=== PATIENT | female | born 1965 | race African-American/Black ===

== ENCOUNTER → 2016-09-12 | Emergency (ER) | payer OTHER ==
[~2016-09-12] MED LIST: METOCLOPRAMIDE HCL INJECTION 10 MG/2 ML VIAL IVPB ONE; PANTOPRAZOLE SODIUM 40 MG in SODIUM CHLORIDE 100 ML IVPB ONE; SODIUM CHLORIDE 1,000 ML IV STA
[2016-09-12 22:13] VITALS: BP 141/92; PULSE 83; TEMP 98.3; BMI 24.4
--- NOTE | 2016-09-12 23:34 | PDOC ---
History of Present Illness - General Chief Complaint: Nausea/Vomiting Stated Complaint: ABDOMINAL PAIN, VOMITING Time Seen by Provider: 09/12/16 22:41 History Source: Patient Exam Limitations: No Limitations - History of Present Illness Travel History: No Initial Comments: 09/12/16 23:29 51yo Female patient with no significant past medical history presents to ED c/o generalized abdominal pain and nausea. Patient states symptoms began yesterday with vomiting. She denies fever, CP, back pain, diarrhea or any other complaints at this time. Timing/Duration: reports: constant Quality: reports: mild Abdominal Pain Onset Location: reports: generalized abdomen Pain Radiation: denies: no radiation, RUQ, LUQ, RLQ, LLQ, epigastric, periumbilical, flank, groin, scapula, shoulder, chest, back, other Activities at Onset: reports: no specific activity Treatment Prior to Arrive: worse with: analgesics, antacids, cold pack, heat, laxative, enema, other Aggravating Factors: improves with: Eating Alleviating Factors: improves with: Belching Past History - Travel Traveled outside of the country in the last 30 days: No Close contact w/someone who was outside of country & ill: No - Past Medical History Allergies/Adverse Reactions: Allergies Allergy/AdvReac Type Severity Reaction Status Date / Time No Known Allergies Allergy Verified 09/12/16 22:11 Home Medications: Ambulatory Orders Aspirin [ASA -] 81 mg PO DAILY 07/03/15 Buprenorphine/Naloxone [Suboxone 8Mg/2Mg Sl Film -] 1 each SL DAILY 07/03/15 Clonazepam [Klonopin] 0.5 mg PO DAILY 07/03/15 Digoxin [Lanoxin -] 0.25 mg PO DAILY 07/03/15 Furosemide [Lasix -] 40 mg PO BID 07/03/15 Thyroid Disease: No - Immunization History Immunization Up to Date: No - Psycho/Social/Smoking Cessation Hx Anxiety: No Suicidal Ideation: No Smoking History: Current every day smoker Have you smoked in the past 12 months: Yes Number of Cigarettes Smoked Daily: 5 Information on smoking cessation initiated: No Hx Alcohol Use: No Drug/Substance Use Hx: No Substance Use Type: None Hx Substance Use Treatment: No Abd/GI Specific PMHX - Complaint Specific PMHX Colitis: No Diverticulitis: No Gall Bladder Disease: No GERD: No Hepatitis: No Irritable Bowel Synd (IBS): No Pancreatitis: No GI Ulcer Disease: No Review of Systems - Review of Systems Able to Perform ROS?: Yes Is the patient limited Estonian proficient: No Constitutional: No: Chills, Fever Cardiac (ROS): No: Chest Pain ABD/GI: Yes: Nausea, Vomiting, Abdominal cramping. No: Constipated, Diarrhea : No: Burning, Dysuria, Flank Pain, Hematuria Musculoskeletal: No: Back Pain Integumentary: No: Bruising, Dryness, Erythema, Rash Neurological: No: Headache, Numbness, Weakness, Dizziness *Physical Exam - Vital Signs Last Vital Signs Temp Pulse Resp BP Pulse Ox 98.3 F 83 20 141/92 96 09/12/16 22:11 09/12/16 22:11 09/12/16 22:11 09/12/16 22:11 09/12/16 22:11 - Physical Exam General Appearance: Yes: Nourished, Appropriately Dressed. No: Apparent Distress, Mild Distress, Moderate Distress, Severe Distress HEENT: positive: EOMI, JAHAIRA, Normal ENT Inspection, Normal Voice, Symmetrical, TMs Normal, Pharynx Normal. negative: Pharyngeal Erythema, Tonsillar Exudate, Tonsillar Erythema, Nasal Congestion, Rhinorrhea, Sinus Tenderness, TM Bulging, TM Dull, TM Erythema Neck: positive: Trachea midline, Supple. negative: Stridor, Lymphadenopathy (R) , Lymphadenopathy (L) Respiratory/Chest: positive: Lungs Clear, Normal Breath Sounds. negative: Chest Tender, Respiratory Distress, Accessory Muscle Use, Labored Respiration, Rapid RR, Rhonchi, Stridor, Wheezing Cardiovascular: positive: Regular Rhythm, Regular Rate Gastrointestinal/Abdominal: positive: Soft, Increased Bowel Sounds. negative: Tender, Distended, Guarding, Rebound, Tenderness Musculoskeletal: positive: Normal Inspection. negative: CVA Tenderness Extremity: positive: Normal Capillary Refill, Normal Inspection, Normal Range of Motion. negative: Pedal Edema, Swelling, Calf Tenderness, Erythema, Inflammation Integumentary: positive: Normal Color, Dry, Warm Neurologic: positive: home organizer II-XII NML intact, Fully Oriented, Alert, Normal Mood/ Affect, Normal Response, Motor Strength 5/5 *DC/Admit/Observation/Transfer Diagnosis at time of Disposition: Gastroenteritis - Discharge Dispostion Disposition: ELOPED Condition at time of disposition: Stable Admit: No
== END | disposition left against medical advice (07) ==
LOC: JER 21:59
DX: K52.9 Noninfective gastroenteritis and colitis, unspecified (principal)
CPT/HCPCS: 99281-25

== ENCOUNTER 2017-01-19 12:49 | Inpatient (IN) | payer OTHER ==
[2017-01-19 13:04] VITALS: BMI 26.5
--- NOTE | 2017-01-19 15:30 | HP ---
COWS - Scale Resting Pulse: 1= SD 81-100 Sweatin= Chills/Flushing Restless Observation: 3= Extraneous Movement Pupil Size: 0= Normal to Room Light Bone or Joint Aches: 4=Acute Joint/Muscle Pain Runny Nose/ Eye Tearin= Runny Nose/Eyes GI Upset > 30mins: 2= Nausea/Diarrhea Tremor Observation: 1= Tremor [place], Not Seen Yawning Observation: 1= 1-2x During Session Anxiety or Irritability: 2=Irritable/Anxious Goose Flesh Skin: 0=Smooth Skin COWS Score: 17 CIWA Score - CIWA Score Nausea/Vomitin-Int. Nausea w/Dry Heave Muscle Tremors: 3 Anxiety: 5 Agitation: 4-Moderately Restless Paroxysmal Sweats: 1-Minimal Palms Moist Orientation: 0-Oriented Tacttile Disturbances: 3-Moderate Itch/Numb/Burn Auditory Disturbances: 0-None Visual Disturbances: 0-None Headache: 2-Mild CIWA-Ar Total Score: 22 Admission ROS BHS - HPI Chief Complaint: DETOX TX FOR HEROIN AND ALCOHOL WITHDRAWAL SX Allergies/Adverse Reactions: Allergies Allergy/AdvReac Type Severity Reaction Status Date / Time No Known Allergies Allergy Verified 01/19/17 14:48 History of Present Illness: 51 Y/O AA/FEMALE WITH A HX OF HEROIN,PCP AND ALCOHOL DEPENDENCE SEEKING DETOX TX. Exam Limitations: No Limitations - Ebola screening Have you traveled outside of the country in the last 21 days: No Have you had contact with anyone from an Ebola affected area: No Have you been sick,other than usual withdrawal symptoms: No Do you have a fever: No - Review of Systems Constitutional: Chills, Night Sweats, Changes in sleep EENT: reports: No Symptoms Reported Respiratory: reports: Shortness of Breath, Wheezing (COPD-RX ASTHMA PUMP) Cardiac: reports: No Symptoms Reported GI: reports: Diarrhea, Nausea, Vomiting, Abdominal cramping (WITHRAWAL SX) : reports: No Symptoms Reported Musculoskeletal: reports: Back Pain (WITHDRAWAL SX), Joint Pain, Muscle Pain Integumentary: reports: No Symptoms Reported Neuro: reports: Unsteady Gait Endocrine: reports: No Symptoms Reported Hematology: reports: Anemia (TAKES MVI) Psychiatric: reports: Orientated x3 Other Systems: Reviewed and Negative Patient History - Patient Medical History Hx Anemia: Yes (MVI) Hx Asthma: No Hx Chronic Obstructive Pulmonary Disease (COPD): Yes (MDI) Hx Cardiac Disorders: No Hx Hypertension: No Hx Hypercholesterolemia: No HX Cerebrovascular Accident: No Hx Seizures: No Hx Diabetes: No Hx Gastrointestinal Disorders: No Hx Genitourinary Disorders: No Hx Sexually Transmitted Disorders: No Hx Renal Disease (ESRD): No Hx Thyroid Disease: No Hx Human Immunodeficiency Virus (HIV): No (NEGATIVE HX) Hx Hepatitis C: No Hx Depression: No (ANXIETY AND INSOMNIA-TAKES KLONOPIN) Hx Suicide Attempt: No Hx Bipolar Disorder: No Hx Schizophrenia: No - Patient Surgical History Past Surgical History: No Hx Neurologic Surgery: No Hx Cataract Extraction: No Hx Cardiac Surgery: No Hx Lung Surgery: No Hx Breast Surgery: No Hx Breast Biopsy: No Hx Abdominal Surgery: No Hx Appendectomy: No Hx Cholecystectomy: No Hx Genitourinary Surgery: No Hx Section: No Hx Orthopedic Surgery: No Hx Hysterectomy: No Anesthesia Reaction: No - PPD History Previous Implant?: Yes Documented Results: Negative w/o proof Implanted On Prior [facility] Admission?: No PPD to be Administered?: Yes - Reproductive History Patient is a Female of Child Bearing Age (11 -55 yrs old): Yes LMP comment: 2009 Patient : No - Smoking Cessation Smoking history: Current some day smoker Have you smoked in the past 12 months: Yes Aproximately how many cigarettes per day: 6 Hx Chewing Tobacco Use: No Initiated information on smoking cessation: Yes 'Breaking Loose' booklet given: 01/19/17 - Substance & Tx. History Hx Alcohol Use: Yes (VODKA) Hx Substance Use: Yes (HEROIN/PCP) Substance Use Type: Alcohol, Heroin Hx Substance Use Treatment: Yes (LAST TX AT [facility] 2007) - Substances Abused Heroin Route: Injection Frequency: Daily Amount used: 6-10 bags Age of first use: 23 Date of Last Use: 01/19/17 PCP Route: Smoking Frequency: 1-2 times per week Amount used: $10-20 Age of first use: 23 Date of Last Use: 01/17/17 Alcohol-vodka Route: Oral Frequency: Daily Amount used: 1 pt. Age of first use: 23 Date of Last Use: 01/19/17 Family Disease History - Family Disease History Family History: Denies Admission Physical Exam BHS - Vital Signs Vital Signs: Vital Signs - 24 hr 01/19/17 13:01 Temperature 97.8 F Pulse Rate 96 H Respiratory 18 Rate Blood Pressure 140/90 - Physical General Appearance: Yes: Moderate Distress HEENTM: Yes: EOMI, Normocephalic, JAHAIRA, Pharynx Normal Respiratory: Yes: Chest Non-Tender, Lungs Clear, Normal Breath Sounds, No Respiratory Distress Breast: Yes: Breast Exam Deferred Cardiology: Yes: Regular Rhythm, Regular Rate, S1, S2 Abdominal: Yes: Normal Bowel Sounds, Non Tender, Flat, Soft Genitourinary: Yes: Other (N/C) Musculoskeletal: Yes: full range of Motion, Gait Steady Extremities: Yes: Normal Range of Motion, Non-Tender Neurological: Yes: certified orthotist/pedorthist II-XII NML intact, Fully Oriented, Alert, Motor Strength 5/5 Integumentary: Yes: Dry, Warm, Track Potter (OLD TRACK ROLAND SCARS ON BOTH ELBOWS AND HANDS.) Lymphatic: Yes: Within Normal Limits - Diagnostic (1) Opioid dependence with withdrawal Current Visit: Yes Status: Acute (2) Alcohol dependence with uncomplicated withdrawal Current Visit: Yes Status: Acute (3) History of chronic obstructive pulmonary disease Current Visit: Yes Status: Chronic (4) Anemia Current Visit: No Status: Suspected Qualifiers: Anemia type: unspecified type Qualified Code(s): D64.9 - Anemia, unspecified Cleared for Admission [facility] - Detox or Rehab [facility] Level of Care: Medically Managed Detox Regimen/Protocol: Methadone/Librium [facility] Breath Alcohol Content Breath Alcohol Content: 0.015 Urine Pregancy Test - Result Urine Test Results: Negative- NO Line Present Urine Drug Screen - Results Drug Screen Negative: No Urine Drug Screen Results: OPI-Opiates, PCP-Phencyclidine
[2017-01-19] MEDS ORDERED: MAGNESIUM HYDROX 2400MG/30ML ORAL SUSPENSION 30 ML CUP PO PRN (15:53)
[2017-01-19] MEDS ORDERED: NICOTINE POLACRILEX 2 MG GUM BC PRN (15:53)
[2017-01-19] MEDS ORDERED: MENTHOL/PHENOL 1 EACH UD MM PRN (15:53)
[2017-01-19] MEDS ORDERED: IBUPROFEN 400 MG TABLET (FP) PO PRN (15:53)
[2017-01-19] MEDS ORDERED: LOPERAMIDE HCL 2 MG CAPSULE PO PRN (15:53)
[2017-01-19] MEDS ORDERED: guaiFENesin/D-METHORPHAN HB 10 ML UNIT-DOSE CUPS PO PRN (15:53)
[2017-01-19] MEDS ORDERED: MAGNESIUM CITRATE 300 ML BOTTLE PO PRN (15:53)
[2017-01-19] MEDS ORDERED: P-EPHED 60MG/TRIPROLIDI 2.5MG TABLET PO PRN (15:53)
[2017-01-19] MEDS ORDERED: MAG HYDROX/AL HYDROX/SIMETH 30 ML UNIT-DOSE CUP PO PRN (15:53)
[2017-01-19] MEDS ORDERED: ALBUTEROL SO4 18 GM HFA INHALER IH PRN (15:55)
[2017-01-19] MEDS ORDERED: METHADONE HCL 10 MG TABLET (FOR DETOX USE ONLY) PO ONE ×2 (17:00→23:00)
[2017-01-19] MEDS: ASPIRIN 81 MG CHEWABLE TABLETS PO SCH (18:19)
[2017-01-19] MEDS: chlordiazePOXIDE HCL 25 MG CAPSULE PO SCH ×2 (18:20→22:47)
[2017-01-19] MEDS: NICOTINE 14 MG/24 HOURS TOPICAL PATCH TD SCH (18:25)
[2017-01-19] MEDS: THIAMINE HCL 100 MG TABLET (FP) PO SCH (22:47)
[2017-01-20] MEDS: chlordiazePOXIDE HCL 25 MG CAPSULE PO PRN (01:54)
[2017-01-20 02:26] LABS: URINE APPEARANCE CLEAR; URINE BILIRUBIN NEGATIVE (NEGATIVE); URINE BLOOD NEGATIVE (NEGATIVE); URINE COLOR LT. YELLOW; URINE GLUCOSE (UA) NEGATIVE (NEGATIVE); URINE KETONE NEGATIVE (NEGATIVE); URINE NITRITE NEGATIVE (NEGATIVE); URINE PROTEIN NEGATIVE (NEGATIVE); URINE UROBILINOGEN 0.2 mg/dL (0.2-1.0)
[2017-01-20] MEDS: chlordiazePOXIDE HCL 25 MG CAPSULE PO SCH ×4 (07:54→22:36)
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
[2017-01-20] MEDS ORDERED: METHADONE HCL 10 MG TABLET (FOR DETOX USE ONLY) PO SCH (10:00)
[2017-01-20 10:15] LABS: MCH 26.4 pg (25.7-33.7); MCHC 32.7 g/dl (32.0-36.0); MEAN CELL VOLUME 80.8 fl (80-96); MEAN PLT VOLUME 9.1 fl (7.5-11.1); PLATELET COUNT 150 K/MM3 (134-434); RDW 14.1 % (11.6-15.6); WHITE BLOOD COUNT 3.6 K/mm3 (4.0-10.0)
[2017-01-20 10:26] LABS: ANION GAP 4 (8-16); CALCIUM 8.3 mg/dL (8.5-10.1); CO2 30 mmol/L (21-32)
[2017-01-20] MEDS: PRENATAL VITAMINS W/ FOLIC ACID TABLET (FP) PO SCH (10:29)
[2017-01-20] MEDS: ASPIRIN 81 MG CHEWABLE TABLETS PO SCH (10:29)
[2017-01-20] MEDS: NICOTINE 14 MG/24 HOURS TOPICAL PATCH TD SCH (10:30)
[2017-01-20 10:31] LABS: ALBUMIN 3.3 g/dl (3.4-5.0); ALK PHOS 105 U/L (45-117); BILIRUBIN,TOTAL 0.5 mg/dL (0.2-1.0); CREATININE 0.7 mg/dL (0.55-1.02); GLUCOSE,RANDOM 85 mg/dL (74-106); SGOT/AST 47 U/L (15-37); SGPT/ALT 39 U/L (12-78); TOT PROT 6.9 g/dl (6.4-8.2)
[2017-01-20] MEDS: ACETAMINOPHEN 325 MG TABLET (FP) PO PRN (10:31)
--- NOTE | 2017-01-20 11:26 | PN ---
[facility] CIWA - CIWA Score Nausea/Vomitin-No Nausea/No Vomiting Muscle Tremors: 4-Moderate,w/Arms Extend Anxiety: 3 Agitation: 3 Paroxysmal Sweats: 3 Orientation: 0-Oriented Tacttile Disturbances: 0-None Auditory Disturbances: 0-None Visual Disturbances: 0-None Headache: 1-Very Mild CIWA-Ar Total Score: 14 BHS COWS - Scale Resting Pulse: 0= [place] 80 or Below Sweatin=Flushed/Facial Moisture Restless Observation: 1= Difficult to Sit Still Pupil Size: 0= Normal to Room Light Bone or Joint Aches: 2= Severe Diffuse Aches Runny Nose/ Eye Tearin= Runny Nose/Eyes GI Upset > 30mins: 0= None Tremor Observation of Outstretched Hands: 2= Slight Tremor Visible Yawning Observation: 2= >3x During Session Anxiety or Irritability: 2=Irritable/Anxious Goose Flesh Skin: 3=Piloerection COWS Score: 16 S Progress Note (SOAP) Subjective: shakes sweats interrupted sleep agitation irritable Objective: 01/20/17 11:26 Vital Signs Temperature 98.4 F 01/20/17 09:44 Pulse Rate 71 01/20/17 09:44 Respiratory Rate 18 01/20/17 09:44 Blood Pressure 142/92 01/20/17 09:44 O2 Sat by Pulse Oximetry (%) Laboratory Tests 01/19/17 01/20/17 01/20/17 22:50 07:40 07:40 WBC 3.6 L D RBC 4.46 D Hgb 11.8 D Hct 36.1 D MCV 80.8 MCH 26.4 MCHC 32.7 RDW 14.1 D Plt Count 150 D MPV 9.1 Sodium 141 Potassium 3.9 Chloride 107 D Carbon Dioxide 30 Anion Gap 4 L BUN 6 L D Creatinine 0.7 D Creat Clearance w eGFR > 60 Random Glucose 85 D Calcium 8.3 L Total Bilirubin 0.5 D AST 47 H D ALT 39 D Alkaline Phosphatase 105 Total Protein 6.9 Albumin 3.3 L D Urine Color Lt. yellow Urine Appearance Clear Urine pH 6.0 Ur Specific [place] 1.020 Urine Protein Negative Urine Glucose (UA) Negative Urine Ketones Negative Urine Blood Negative Urine Nitrite Negative Urine Bilirubin Negative Urine Urobilinogen 0.2 RPR Titer 01/20/17 07:40 WBC RBC Hgb Hct MCV MCH MCHC RDW Plt Count MPV Sodium Potassium Chloride Carbon Dioxide Anion Gap BUN Creatinine Creat Clearance w eGFR Random Glucose Calcium Total Bilirubin AST ALT Alkaline Phosphatase Total Protein Albumin Urine Color Urine Appearance Urine pH Ur Specific [place] Urine Protein Urine Glucose (UA) Urine Ketones Urine Blood Urine Nitrite Urine Bilirubin Urine Urobilinogen RPR Titer Nonreactive aaox3 ambulating no acute distress Assessment: 01/20/17 11:26 withdrawal sx Plan: continue detox increase fluids
[2017-01-20 11:43] LABS: URINE LEUK ESTERASE Negative (NEGATIVE)
[2017-01-20 12:45] LABS: SICKLE CELL SCREEN NEGATIVE (NEGATIVE)
--- NOTE | 2017-01-20 22:30 | EKG ---
Test Reason : Blood Pressure : / mmHG Vent. Rate : 070 BPM Atrial Rate : 070 BPM P-R Int : 172 ms QRS Dur : 080 ms QT Int : 392 ms P-R-T Axes : 064 071 050 degrees QTc Int : 423 ms NORMAL SINUS RHYTHM POSSIBLE LEFT ATRIAL ENLARGEMENT BORDERLINE ECG WHEN COMPARED WITH ECG OF 03-JUL-2015 16:08, PREMATURE VENTRICULAR COMPLEXES ARE NO LONGER PRESENT Confirmed by MIRIAM DE LA ROSA, EMERSON ([id number]) on 01/20/2017 10:29:27 PM Referred By: DANIEL YANES Confirmed By:EMERSON PINEDA MD
[2017-01-20] MEDS: ZOLPIDEM TARTRATE 5 MG TABLET PO PRN (22:34)
[2017-01-20] MEDS: THIAMINE HCL 100 MG TABLET (FP) PO SCH (22:36)
[2017-01-21] MEDS: chlordiazePOXIDE HCL 25 MG CAPSULE PO PRN ×3 (02:06→14:18)
[2017-01-21] MEDS: chlordiazePOXIDE HCL 25 MG CAPSULE PO SCH ×2 (05:41→10:24)
[2017-01-21] MEDS: CYCLOBENZAPRINE HCL 10 MG TABLET (FP) PO PRN ×2 (08:55→17:22)
[2017-01-21] MEDS ORDERED: cloNIDine HCL 0.1 MG TABLET PO ONE (09:00)
--- NOTE | 2017-01-21 09:58 | PN ---
S CIWA - CIWA Score Nausea/Vomitin Muscle Tremors: 3 Anxiety: 3 Agitation: 3 Paroxysmal Sweats: 2 Orientation: 0-Oriented Tacttile Disturbances: 1-Very Mild Itch/Numbness Auditory Disturbances: 1-Very Mild Visual Disturbances: 0-None Headache: 2-Mild CIWA-Ar Total Score: 18 BHS COWS - Scale Resting Pulse: 0= [place] 80 or Below Sweatin= Chills/Flushing Restless Observation: 3= Extraneous Movement Pupil Size: 1= Pupils >than Normal Bone or Joint Aches: 2= Severe Diffuse Aches Runny Nose/ Eye Tearin= Runny Nose/Eyes GI Upset > 30mins: 2= Nausea/Diarrhea Tremor Observation of Outstretched Hands: 2= Slight Tremor Visible Yawning Observation: 1= 1-2x During Session Anxiety or Irritability: 2=Irritable/Anxious Goose Flesh Skin: 0=Smooth Skin COWS Score: 16 S Progress Note (SOAP) Subjective: alert,irritable,anxious,interrupted sleep,tremor,pain in the body ad back Objective: 01/21/17 09:57 Vital Signs Temperature 97.7 F 01/21/17 06:10 Pulse Rate 62 01/21/17 06:10 Respiratory Rate 16 01/21/17 06:10 Blood Pressure 145/86 01/21/17 06:10 O2 Sat by Pulse Oximetry (%) Laboratory Last Values WBC 3.6 K/mm3 (4.0-10.0) L D 01/20/17 07:40 RBC 4.46 M/mm3 (3.60-5.2) D 01/20/17 07:40 Hgb 11.8 GM/dL (10.7-15.3) D 01/20/17 07:40 Hct 36.1 % (32.4-45.2) D 01/20/17 07:40 MCV 80.8 fl (80-96) 01/20/17 07:40 MCH 26.4 pg (25.7-33.7) 01/20/17 07:40 MCHC 32.7 g/dl (32.0-36.0) 01/20/17 07:40 RDW 14.1 % (11.6-15.6) D 01/20/17 07:40 Plt Count 150 K/MM3 (134-434) D 01/20/17 07:40 MPV 9.1 fl (7.5-11.1) 01/20/17 07:40 Sickle Cell Screen Negative (NEGATIVE) 01/20/17 07:40 Sodium 141 mmol/L (136-145) 01/20/17 07:40 Potassium 3.9 mmol/L (3.5-5.1) 01/20/17 07:40 Chloride 107 mmol/L (98-107) D 01/20/17 07:40 Carbon Dioxide 30 mmol/L (21-32) 01/20/17 07:40 Anion Gap 4 (8-16) L 01/20/17 07:40 BUN 6 mg/dL (7-18) L D 01/20/17 07:40 Creatinine 0.7 mg/dL (0.55-1.02) D 01/20/17 07:40 Creat Clearance w eGFR > 60 (>60) 01/20/17 07:40 Random Glucose 85 mg/dL (74-106) D 01/20/17 07:40 Calcium 8.3 mg/dL (8.5-10.1) L 01/20/17 07:40 Total Bilirubin 0.5 mg/dL (0.2-1.0) D 01/20/17 07:40 AST 47 U/L (15-37) H D 01/20/17 07:40 ALT 39 U/L (12-78) D 01/20/17 07:40 Alkaline Phosphatase 105 U/L (45-117) 01/20/17 07:40 Total Protein 6.9 g/dl (6.4-8.2) 01/20/17 07:40 Albumin 3.3 g/dl (3.4-5.0) L D 01/20/17 07:40 Urine Color Lt. yellow 01/19/17 22:50 Urine Appearance Clear 01/19/17 22:50 Urine pH 6.0 (5.0-8.0) 01/19/17 22:50 Ur Specific [place] 1.020 (1.001-1.035) 01/19/17 22:50 Urine Protein Negative (NEGATIVE) 01/19/17 22:50 Urine Glucose (UA) Negative (NEGATIVE) 01/19/17 22:50 Urine Ketones Negative (NEGATIVE) 01/19/17 22:50 Urine Blood Negative (NEGATIVE) 01/19/17 22:50 Urine Nitrite Negative (NEGATIVE) 01/19/17 22:50 Urine Bilirubin Negative (NEGATIVE) 01/19/17 22:50 Urine Urobilinogen 0.2 mg/dL (0.2-1.0) 01/19/17 22:50 Ur Leukocyte Esterase Negative (NEGATIVE) 01/19/17 22:50 RPR Titer Nonreactive (NONREACTIVE) 01/20/17 07:40 Assessment: 01/21/17 09:57 withdrawal symptom Plan: continue detox
[2017-01-21] MEDS: hydrOXYzine PAMOATE 50 MG CAPSULE (FP) PO PRN ×2 (10:24→14:30)
[2017-01-21] MEDS: NICOTINE 14 MG/24 HOURS TOPICAL PATCH TD SCH (10:24)
[2017-01-21] MEDS: ASPIRIN 81 MG CHEWABLE TABLETS PO SCH (10:24)
[2017-01-21] MEDS: PRENATAL VITAMINS W/ FOLIC ACID TABLET (FP) PO SCH (10:24)
[2017-01-21] MEDS: METHADONE HCL 5 MG TABLET (FOR DETOX USE ONLY) PO SCH (10:24)
[2017-01-21] MEDS: ACETAMINOPHEN 325 MG TABLET (FP) PO PRN (10:25)
[2017-01-21] MEDS: HYDROCORTISONE 1% TOPICAL CREAM 30 GM TUBE TP SCH ×2 (15:59→22:06)
[2017-01-21] MEDS: chlordiazePOXIDE 5 MG CAPSULE PO SCH ×2 (17:19→22:06)
[2017-01-21] MEDS: ZOLPIDEM TARTRATE 5 MG TABLET PO PRN (22:06)
[2017-01-21] MEDS: THIAMINE HCL 100 MG TABLET (FP) PO SCH (22:06)
[2017-01-21] MEDS: cloNIDine HCL 0.1 MG TABLET PO SCH (22:07)
[2017-01-22] MEDS: hydrOXYzine PAMOATE 50 MG CAPSULE (FP) PO PRN ×2 (02:19→07:37)
[2017-01-22] MEDS: chlordiazePOXIDE HCL 25 MG CAPSULE PO PRN (02:19)
[2017-01-22] MEDS: chlordiazePOXIDE 5 MG CAPSULE PO SCH ×2 (05:49→10:28)
[2017-01-22] MEDS: CYCLOBENZAPRINE HCL 10 MG TABLET (FP) PO PRN (05:49)
[2017-01-22] MEDS: ASPIRIN 81 MG CHEWABLE TABLETS PO SCH (10:28)
[2017-01-22] MEDS: cloNIDine HCL 0.1 MG TABLET PO SCH (10:28)
[2017-01-22] MEDS: METHADONE HCL 5 MG TABLET (FOR DETOX USE ONLY) PO SCH (10:28)
[2017-01-22] MEDS: PRENATAL VITAMINS W/ FOLIC ACID TABLET (FP) PO SCH (10:29)
[2017-01-22] MEDS: HYDROCORTISONE 1% TOPICAL CREAM 30 GM TUBE TP SCH (10:29)
[2017-01-22] MEDS: NICOTINE 14 MG/24 HOURS TOPICAL PATCH TD SCH (10:29)
[2017-01-22 11:20] VITALS: BP 127/75; PULSE 71; TEMP 97.7
--- NOTE | 2017-01-22 11:25 | PN ---
BHS Progress Note (SOAP) Subjective: alert,irritable,anxious,interrupted sleep,tremor,interrupted sleep,pain in the body and back Objective: 01/22/17 11:29 Vital Signs Temperature 97.7 F 01/22/17 11:18 Pulse Rate 71 01/22/17 11:18 Respiratory Rate 16 01/22/17 11:18 Blood Pressure 127/75 01/22/17 11:18 O2 Sat by Pulse Oximetry (%) Assessment: 01/22/17 11:29 withdrawal symptom Plan: continue detox
--- NOTE | 2017-01-22 12:57 | PN ---
S Progress Note Note: patient is non compliance,disrespectful to staffs and threatening the staffs, urgent discharge,escorted off nit by securities
--- NOTE | 2017-01-22 13:07 | DS ---
[facility] Detox Discharge Summary Admission Date: 01/19/17 Discharge Date: 01/22/17 - History Present History: Alcohol Dependence, Opioid Dependence Additional Comments: patient misbehaved,non compliance,threatening and disrespectful to staff with several warning, urgent discharge,escorted off unit by securities Pertinent Past History: copd nicotine dependence substance induced mood disorder substance induced sleep disorder - Physical Exam Results Vital Signs: Vital Signs Temperature 97.7 F 01/22/17 11:18 Pulse Rate 71 01/22/17 11:18 Respiratory Rate 16 01/22/17 11:18 Blood Pressure 127/75 01/22/17 11:18 O2 Sat by Pulse Oximetry (%) Pertinent Admission Physical Exam Findings: withdrawal symptom - Medication Discharge Medications: Ambulatory Orders Aspirin [ASA -] 81 mg PO DAILY 07/03/15 Albuterol Sulfate Inhaler - [Ventolin Hfa Inhaler -] 2 inh PO Q4H PRN 01/19/17 - Diagnosis (1) Alcohol dependence with uncomplicated withdrawal Current Visit: Yes Status: Chronic (2) Nicotine dependence Current Visit: Yes Status: Chronic Qualifiers: Nicotine product type: cigarettes Substance use status: uncomplicated Qualified Code(s): F17.210 - Nicotine dependence, cigarettes, uncomplicated (3) Opioid dependence with withdrawal Current Visit: Yes Status: Chronic (4) COPD exacerbation Current Visit: No Status: Acute (5) Substance induced mood disorder Current Visit: Yes Status: Acute (6) Substance-induced sleep disorder Current Visit: Yes Status: Acute
[2017-01-22] MEDS ORDERED: chlordiazePOXIDE HCL 10 MG CAPSULE PO SCH (17:00)
[2017-01-23] MEDS ORDERED: METHADONE HCL 10 MG TABLET (FOR DETOX USE ONLY) PO SCH (10:00)
[2017-01-24] MEDS ORDERED: METHADONE HCL 5 MG TABLET (FOR DETOX USE ONLY) PO SCH (06:00)
== END 2017-01-22 13:15 | disposition home or self-care (01) | DRG 773 ==
LOC: YASAS 12:49 → Y6N 16:22
PROVIDERS: ADMIT Internal Medicine; ATTEND Internal Medicine
PROC: HZ2ZZZZ Detoxification Services for Substance Abuse Treatment (ICD-10-PCS; principal; 2017-01-19)
DX: F11.23 Opioid dependence with withdrawal (principal); F10.230 Alcohol dependence with withdrawal, uncomplicated; F16.20 Hallucinogen dependence, uncomplicated; F17.210 Nicotine dependence, cigarettes, uncomplicated; F19.24 Other psychoactive substance dependence with psychoactive substance-induced mood disorder; F19.282 Other psychoactive substance dependence with psychoactive substance-induced sleep disorder; J44.9 Chronic obstructive pulmonary disease, unspecified; D64.9 Anemia, unspecified
CPT/HCPCS: 36415; 80053; 81003; 85027; 85660; 86593; 93005; 93010

== ENCOUNTER 2017-12-12 15:02 | Inpatient (IN) | payer OTHER ==
[2017-12-12 16:52] VITALS: BMI 25.4
--- NOTE | 2017-12-12 20:18 | HP ---
COWS - Scale Resting Pulse: 0= IN 80 or Below Sweatin= No chills or Flushing Restless Observation: 1= Difficult to Sit Still Pupil Size: 0= Normal to Room Light Bone or Joint Aches: 1= Mild Discomfort Runny Nose/ Eye Tearin= Runny Nose/Eyes GI Upset > 30mins: 3= Vomiting/Diarrhea Tremor Observation: 2= Slight Tremor Visible Yawning Observation: 1= 1-2x During Session Anxiety or Irritability: 2=Irritable/Anxious Goose Flesh Skin: 0=Smooth Skin COWS Score: 12 CIWA Score - CIWA Score Nausea/Vomitin Muscle Tremors: 2 Anxiety: 3 Agitation: 4-Moderately Restless Paroxysmal Sweats: 1-Minimal Palms Moist Orientation: 0-Oriented Tacttile Disturbances: 0-None Auditory Disturbances: 0-None Visual Disturbances: 0-None Headache: 0-None Present CIWA-Ar Total Score: 12 Admission ROS S - HPI Chief Complaint: alcohol and opioid withdrawal symptoms Allergies/Adverse Reactions: Allergies Allergy/AdvReac Type Severity Reaction Status Date / Time egg Allergy Severe Hives Verified 12/12/17 17:50 Fish Containing Products Allergy Severe Hives Verified 12/12/17 17:50 peanut Allergy Severe Difficulty Verified 12/12/17 17:50 Breathing NKDA Allergy Uncoded 12/12/17 17:50 History of Present Illness: 52 yo female with hx Heroin (IV), and alcohol dependence is here seeking detox. Last detox [facility] 01/19/17 -01/22/17. Denies any medical or psychiatric hx. Denies suicidal / homicidal. Overdose x 3, last episode two years ago. Reports prior tx with Suboxone in 2008 with no success. No hx of seizures or blackouts. Longest period of sobriety 18 months 2013. Exam Limitations: No Limitations - Ebola screening Have you traveled outside of the country in the last 21 days: No Have you had contact with anyone from an Ebola affected area: No Have you been sick,other than usual withdrawal symptoms: No - Review of Systems Constitutional: Chills, Loss of Appetite, Weakness EENT: reports: No Symptoms Reported Respiratory: reports: No Symptoms reported Cardiac: reports: No Symptoms Reported GI: reports: Diarrhea, Nausea, Poor Appetite, Poor Fluid Intake, Abdominal cramping : reports: No Symptoms Reported Musculoskeletal: reports: Back Pain, Joint Pain Integumentary: reports: No Symptoms Reported Neuro: reports: No Symptoms reported Endocrine: reports: Increased Thirst Hematology: reports: No Symptoms Reported Psychiatric: reports: Orientated x3, Anxious Other Systems: Reviewed and Negative Patient History - Patient Medical History Hx Anemia: Yes (MVI) Hx Asthma: No Hx Chronic Obstructive Pulmonary Disease (COPD): No (denies) Hx Cancer: No Hx Cardiac Disorders: No (denies) Hx Congestive Heart Failure: No Hx Hypertension: No Hx Hypercholesterolemia: No Hx Pacemaker: No HX Cerebrovascular Accident: No Hx Seizures: No Hx Dementia: No Hx Diabetes: No Hx Gastrointestinal Disorders: No Hx Liver Disease: No Hx Genitourinary Disorders: No Hx Sexually Transmitted Disorders: No Hx Renal Disease (ESRD): No Hx Thyroid Disease: No Hx Human Immunodeficiency Virus (HIV): No (NEGATIVE HX. Last tested as per patient 2013, declines testing) Hx Hepatitis C: No Hx Depression: No Hx Suicide Attempt: No Hx Bipolar Disorder: No Hx Schizophrenia: No - Patient Surgical History Past Surgical History: No Hx Neurologic Surgery: No Hx Cataract Extraction: No Hx Cardiac Surgery: No Hx Lung Surgery: No Hx Breast Surgery: No Hx Breast Biopsy: No Hx Abdominal Surgery: No Hx Appendectomy: No Hx Cholecystectomy: No Hx Genitourinary Surgery: No Hx Section: No Hx Orthopedic Surgery: No Hx Hysterectomy: No Anesthesia Reaction: No - PPD History Previous Implant?: Yes Documented Results: Negative w/proof Implanted On Prior [facility] Admission?: Yes Date: 01/21/17 Results: 0 mm - Reproductive History Patient is a Female of Child Bearing Age (11 -55 yrs old): Yes (Post menopausal ) Patient : No - Smoking Cessation Smoking history: Former smoker Have you smoked in the past 12 months: No Aproximately how many cigarettes per day: 6 Hx Chewing Tobacco Use: No Initiated information on smoking cessation: No - Substance & Tx. History Hx Alcohol Use: Yes Hx Substance Use: Yes Substance Use Type: Alcohol, Heroin Hx Substance Use Treatment: Yes (Last detox [facility] 01/19/17 -01/22/17.) - Substances Abused Heroin Route: Injection Frequency: Daily Amount used: 10 bags Age of first use: 25 Date of Last Use: 12/12/17 Alcohol-beer/vodka Route: Oral Frequency: Daily Amount used: 1-6 pk./1 pt. Age of first use: 17 Date of Last Use: 12/12/17 Family Disease History - Family Disease History Family History: Denies Admission Physical Exam [facility] - Vital Signs Vital Signs: Vital Signs - 24 hr 12/12/17 16:49 Temperature 98.3 F Pulse Rate 78 Respiratory 20 Rate Blood Pressure 141/99 - Physical General Appearance: Yes: Appropriately Dressed, Mild Distress, Thin, Sweating, Anxious HEENTM: Yes: EOMI, Hearing grossly Normal, Normal ENT Inspection, Normocephalic , Normal Voice, JAHAIRA, Pharynx Normal, Tm's normal Respiratory: Yes: Chest Non-Tender, Lungs Clear, Normal Breath Sounds, No Respiratory Distress, No Accessory Muscle Use Neck: Yes: Within Normal Limits Breast: Yes: Breast Exam Deferred Cardiology: Yes: Regular Rhythm, Regular Rate Abdominal: Yes: Normal Bowel Sounds, Non Tender, Flat, Soft Genitourinary: Yes: Within Normal Limits Back: Yes: Normal Inspection Musculoskeletal: Yes: full range of Motion, Gait Steady, Pelvis Stable Extremities: Yes: Normal Capillary Refill, Normal Inspection, Normal Range of Motion, Non-Tender, Other Neurological: Yes: executive receptionist II-XII NML intact, Fully Oriented, Alert, Motor Strength 5/5, Depressed Affect Integumentary: Yes: Normal Color, Warm, Clammy, Track Potter (left hand, no infection) Lymphatic: Yes: Within Normal Limits - Diagnostic (1) Alcohol dependence with uncomplicated withdrawal Current Visit: Yes Status: Chronic (2) Opioid dependence with withdrawal Current Visit: Yes Status: Chronic Cleared for Admission [facility] - Detox or Rehab [facility] Level of Care: Medically Supervised Detox Regimen/Protocol: Methadone/Librium [facility] Breath Alcohol Content Breath Alcohol Content: 0.008 Urine Pregancy Test - Result Urine Test Results: Negative- NO Line Present Urine Drug Screen - Results Drug Screen Negative: No Urine Drug Screen Results: OPI-Opiates, OXY-Oxycodone, FEN-Fentanyl
[2017-12-12] MEDS ORDERED: ACETAMINOPHEN 325 MG TABLET (FP) PO PRN (20:24)
[2017-12-12] MEDS ORDERED: MENTHOL/PHENOL 1 EACH UD MM PRN (20:24)
[2017-12-12] MEDS ORDERED: METHADONE HCL 10 MG TABLET (FOR DETOX USE ONLY) PO ONE ×2 (20:24→23:00)
[2017-12-12] MEDS ORDERED: guaiFENesin/D-METHORPHAN HB 10 ML UNIT-DOSE CUPS PO PRN (20:24)
[2017-12-12] MEDS ORDERED: MAGNESIUM CITRATE 300 ML BOTTLE PO PRN (20:24)
[2017-12-12] MEDS ORDERED: IBUPROFEN 400 MG TABLET (FP) PO PRN (20:24)
[2017-12-12] MEDS ORDERED: P-EPHED 60MG/TRIPROLIDI 2.5MG TABLET PO PRN (20:24)
[2017-12-12] MEDS ORDERED: MAG HYDROX/AL HYDROX/SIMETH 30 ML UNIT-DOSE CUP PO PRN (20:24)
[2017-12-12] MEDS ORDERED: MAGNESIUM HYDROX 2400MG/30ML ORAL SUSPENSION 30 ML CUP PO PRN (20:24)
[2017-12-12] MEDS ORDERED: LOPERAMIDE HCL 2 MG CAPSULE PO PRN (20:24)
[2017-12-12 22:10] LABS: URINE APPEARANCE CLEAR; URINE BILIRUBIN NEGATIVE (<2.0 mg/dL); URINE COLOR YELLOW; URINE GLUCOSE (UA) NEGATIVE (NEGATIVE); URINE KETONE NEGATIVE (NEGATIVE); URINE LEUK ESTERASE TRACE (NEGATIVE); URINE NITRITE NEGATIVE (NEGATIVE); URINE PROTEIN NEGATIVE (NEGATIVE)
[2017-12-12 23:03] LABS: EPI CELLS RARE /HPF (FEW); URINE MUCUS RARE
[2017-12-12] MEDS: chlordiazePOXIDE HCL 25 MG CAPSULE PO SCH (23:50)
[2017-12-12] MEDS: THIAMINE HCL 100 MG TABLET (FP) PO SCH (23:51)
[2017-12-13] MEDS: chlordiazePOXIDE HCL 25 MG CAPSULE PO SCH ×4 (05:31→22:32)
[2017-12-13] MEDS ORDERED: METHADONE HCL 10 MG TABLET (FOR DETOX USE ONLY) PO SCH (10:00)
[2017-12-13] MEDS: PRENATAL VITAMINS W/ FOLIC ACID TABLET (FP) PO SCH (10:34)
--- NOTE | 2017-12-13 10:52 | CONSULT ---
[facility] Psychiatric Consult - Data Date of interview: 12/13/17 Admission source: [facility] Identifying data: Patient is a 52 year old female, , mother of two, domiciled, and currently employed. This is one of multiple admissions for patient. Patient admitted to for alcohol and opioid dependence. Substance Abuse History: - Smoking Cessation. Smoking history: Former smoker. Have you smoked in the past 12 months: No. Aproximately how many cigarettes per day: 6. Hx Chewing Tobacco Use: No. Initiated information on smoking cessation: No. - Substance & Tx. History. Hx Alcohol Use: Yes. Hx Substance Use: Yes. Substance Use Type: Alcohol, Heroin. Hx Substance Use Treatment: Yes (Last detox [facility] 01/19/17 -01/22/17.). - Substances Abused. Heroin. Route: Injection. Frequency: Daily. Amount used: 10 bags. Age of first use: 25. Date of Last Use: 12/12/17. Alcohol-beer/vodka. Route: Oral. Frequency: Daily. Amount used: 1-6 pk./1 pt. Age of first use: 17. Date of Last Use: 12/12/17 Medical History: Anemia Psychiatric History: Patient denies h/o psychiatric hospitalization, outpatient care, and suicide attempt. Physical/Sexual Abuse/Trauma History: denies. Mental Status Exam - Mental Status Exam Alert and Oriented to: Time, Place, Person Cognitive Function: Good Patient Appearance: Well Groomed Mood: Euthymic Affect: Mood Congruent Patient Behavior: Cooperative Speech Pattern: Appropriate Voice Loudness: Normal Thought Process: Intact, Goal Oriented Thought Disorder: Not Present Hallucinations: Denies Suicidal Ideation: Denies Homicidal Ideation: Denies Insight/Judgement: Poor Sleep: Fair Appetite: Fair Muscle strength/Tone: Normal Gait/Station: Normal Psychiatric Findings - Problem List ([place] 1, 2,3) (1) Alcohol dependence with uncomplicated withdrawal Current Visit: Yes Status: Acute (2) Opioid dependence with withdrawal Current Visit: Yes Status: Acute - Initial Treatment Plan Initial Treatment Plan: Psychoeducation provided. Detoxification in progress. Observation.
[2017-12-13] MEDS ORDERED: cloNIDine HCL 0.1 MG TABLET PO PRN (11:49)
--- NOTE | 2017-12-13 11:49 | PN ---
[facility] CIWA - CIWA Score Nausea/Vomitin-No Nausea/No Vomiting Muscle Tremors: 4-Moderate,w/Arms Extend Anxiety: 3 Agitation: 3 Paroxysmal Sweats: 3 Orientation: 0-Oriented Tacttile Disturbances: 0-None Auditory Disturbances: 0-None Visual Disturbances: 0-None Headache: 0-None Present CIWA-Ar Total Score: 13 [facility] COWS - Scale Resting Pulse: 0= [place] 80 or Below Sweatin=Flushed/Facial Moisture Restless Observation: 1= Difficult to Sit Still Pupil Size: 0= Normal to Room Light Bone or Joint Aches: 2= Severe Diffuse Aches Runny Nose/ Eye Tearin= Nasal Congestion GI Upset > 30mins: 1= Stomach Cramp Tremor Observation of Outstretched Hands: 2= Slight Tremor Visible Yawning Observation: 2= >3x During Session Anxiety or Irritability: 2=Irritable/Anxious Goose Flesh Skin: 0=Smooth Skin COWS Score: 13 [facility] Progress Note (SOAP) Subjective: sweats shakes interrupted sleep agitation chills Objective: 12/13/17 11:48 Vital Signs Temperature 98.0 F 12/13/17 09:47 Pulse Rate 78 12/13/17 09:47 Respiratory Rate 18 12/13/17 09:47 Blood Pressure 139/94 12/13/17 09:47 O2 Sat by Pulse Oximetry (%) Laboratory Tests 12/12/17 20:48 Urine Color Yellow Urine Appearance Clear Urine pH 6.0 Ur Specific [place] 1.014 Urine Protein Negative Urine Glucose (UA) Negative Urine Ketones Negative Urine Blood Negative Urine Nitrite Negative Urine Bilirubin Negative Urine Urobilinogen 2.0 H Ur Leukocyte Esterase Trace Urine WBC (Auto) <1 Urine RBC (Auto) None Ur Epithelial Cells Rare Urine Mucus Rare labs pending aaox3 ambulating no acute distress Assessment: 12/13/17 11:49 withdrawal sx Plan: continue detox increase fluids clonidine 01.mg prn
--- NOTE | 2017-12-13 13:17 | EKG ---
Test Reason : Blood Pressure : / mmHG Vent. Rate : 066 BPM Atrial Rate : 066 BPM P-R Int : 162 ms QRS Dur : 076 ms QT Int : 402 ms P-R-T Axes : 066 071 051 degrees QTc Int : 421 ms NORMAL SINUS RHYTHM NORMAL ECG WHEN COMPARED WITH ECG OF 19-JAN-2017 18:27, NO SIGNIFICANT CHANGE WAS FOUND Confirmed by MD PAOLA, ARNEL ([id number]) on 12/13/2017 1:16:42 PM Referred By: Confirmed By:ARNEL GUEVARA MD
[2017-12-13] MEDS: chlordiazePOXIDE HCL 25 MG CAPSULE PO PRN (21:08)
[2017-12-13] MEDS: MELATONIN 5 MG TABLETS PO PRN (22:32)
[2017-12-13] MEDS: THIAMINE HCL 100 MG TABLET (FP) PO SCH (22:32)
[2017-12-14] MEDS: chlordiazePOXIDE HCL 25 MG CAPSULE PO SCH ×3 (06:03→17:27)
[2017-12-14] MEDS: PRENATAL VITAMINS W/ FOLIC ACID TABLET (FP) PO SCH (10:28)
[2017-12-14] MEDS: METHADONE HCL 5 MG TABLET (FOR DETOX USE ONLY) PO SCH (10:28)
--- NOTE | 2017-12-14 11:04 | PN ---
[facility] CIWA - CIWA Score Nausea/Vomitin-No Nausea/No Vomiting Muscle Tremors: 3 Anxiety: 3 Agitation: 3 Paroxysmal Sweats: 3 Orientation: 0-Oriented Tacttile Disturbances: 0-None Auditory Disturbances: 0-None Visual Disturbances: 0-None Headache: 0-None Present CIWA-Ar Total Score: 12 [facility] COWS - Scale Resting Pulse: 0= [place] 80 or Below Sweatin= Chills/Flushing Restless Observation: 1= Difficult to Sit Still Pupil Size: 0= Normal to Room Light Bone or Joint Aches: 2= Severe Diffuse Aches Runny Nose/ Eye Tearin= Nasal Congestion GI Upset > 30mins: 0= None Tremor Observation of Outstretched Hands: 2= Slight Tremor Visible Yawning Observation: 2= >3x During Session Anxiety or Irritability: 2=Irritable/Anxious Goose Flesh Skin: 0=Smooth Skin COWS Score: 11 S Progress Note (SOAP) Subjective: irritable agitation body aches sweats chills interrupted sleep Objective: 12/14/17 11:03 Vital Signs Temperature 98.1 F 12/14/17 10:29 Pulse Rate 70 12/14/17 10:29 Respiratory Rate 18 12/14/17 10:29 Blood Pressure 120/82 12/14/17 10:29 O2 Sat by Pulse Oximetry (%) Laboratory Tests 12/12/17 20:48 Urine Color Yellow Urine Appearance Clear Urine pH 6.0 Ur Specific [place] 1.014 Urine Protein Negative Urine Glucose (UA) Negative Urine Ketones Negative Urine Blood Negative Urine Nitrite Negative Urine Bilirubin Negative Urine Urobilinogen 2.0 H Ur Leukocyte Esterase Trace Urine WBC (Auto) <1 Urine RBC (Auto) None Ur Epithelial Cells Rare Urine Mucus Rare labs ordered for pt aaox3 ambulating no acute distress Assessment: 12/14/17 11:09 withdrawal sx Plan: continue detox increase fluids labs ordered; results pending
[2017-12-14] MEDS: chlordiazePOXIDE HCL 25 MG CAPSULE PO PRN ×2 (14:55→19:10)
[2017-12-14] MEDS: THIAMINE HCL 100 MG TABLET (FP) PO SCH (23:35)
[2017-12-14] MEDS: MELATONIN 5 MG TABLETS PO PRN (23:35)
[2017-12-14] MEDS: chlordiazePOXIDE 5 MG CAPSULE PO SCH (23:35)
[2017-12-15] MEDS: chlordiazePOXIDE 5 MG CAPSULE PO SCH ×2 (05:44→10:12)
[2017-12-15] MEDS ORDERED: diphenhydrAMINE HCL 50 MG CAPSULE PO ONE (08:26)
[2017-12-15] MEDS ORDERED: diphenhydrAMINE HCL 25 MG CAPSULE (FP) PO ONE (08:35)
[2017-12-15] MEDS: PRENATAL VITAMINS W/ FOLIC ACID TABLET (FP) PO SCH (10:11)
[2017-12-15] MEDS: METHADONE HCL 5 MG TABLET (FOR DETOX USE ONLY) PO SCH (10:11)
--- NOTE | 2017-12-15 10:23 | DS ---
[facility] Detox Discharge Summary Admission Date: 12/12/17 Discharge Date: 12/15/17 - History Present History: Alcohol Dependence, Pcp Dependence - Physical Exam Results Vital Signs: Vital Signs Temperature 97.3 F L 12/15/17 08:29 Pulse Rate 60 12/15/17 08:29 Respiratory Rate 18 12/15/17 08:29 Blood Pressure 121/87 12/15/17 08:29 O2 Sat by Pulse Oximetry (%) - Treatment Hospital Course: Detox Protocol Followed, Detoxed Safely, Responded well, Discharged Condition Good, Rehab Referral Accepted - Medication Discharge Medications: Ambulatory Orders Albuterol Sulfate Inhaler - [Ventolin HFA Inhaler -] 2 inh PO Q4H PRN 01/19/17 - Diagnosis (1) Alcohol dependence with uncomplicated withdrawal Current Visit: Yes Status: Chronic (2) Opioid dependence with withdrawal Current Visit: Yes Status: Chronic (3) History of chronic obstructive pulmonary disease Current Visit: Yes Status: Chronic (4) Acute exacerbation of chronic obstructive pulmonary disease (COPD) Current Visit: No Status: Acute (5) Substance induced mood disorder Current Visit: No Status: Acute (6) Nicotine dependence Current Visit: Yes Status: Chronic Qualifiers: Nicotine product type: cigarettes Substance use status: uncomplicated Qualified Code(s): F17.210 - Nicotine dependence, cigarettes, uncomplicated (7) Phencyclidine dependence Current Visit: Yes Status: Chronic - AMA Did Patient Leave Against Medical Advice: No (pt refused to stay for aftercare. )
[2017-12-15 11:36] VITALS: TEMP 97.7
[2017-12-15 13:59] VITALS: BP 109/68; PULSE 81
[2017-12-15] MEDS ORDERED: chlordiazePOXIDE HCL 10 MG CAPSULE PO SCH (23:00)
[2017-12-16] MEDS ORDERED: METHADONE HCL 10 MG TABLET (FOR DETOX USE ONLY) PO SCH (10:00)
[2017-12-17] MEDS ORDERED: METHADONE HCL 5 MG TABLET (FOR DETOX USE ONLY) PO SCH (06:00)
== END 2017-12-15 14:25 | disposition home or self-care (01) | DRG 773 ==
LOC: YASAS 15:02 → Y6N 18:25
PROC: HZ2ZZZZ Detoxification Services for Substance Abuse Treatment (ICD-10-PCS; principal; 2017-12-12)
DX: F11.23 Opioid dependence with withdrawal (principal); F10.230 Alcohol dependence with withdrawal, uncomplicated; F16.20 Hallucinogen dependence, uncomplicated; F17.210 Nicotine dependence, cigarettes, uncomplicated; F19.24 Other psychoactive substance dependence with psychoactive substance-induced mood disorder; D64.9 Anemia, unspecified; Z91.010 Allergy to peanuts; Z91.011 Allergy to milk products; Z91.013 Allergy to seafood
CPT/HCPCS: 81003; 81015; 93005; 93010; J0735

== ENCOUNTER 2018-05-02 23:11 | Inpatient (IN) | payer OTHER ==
--- NOTE | 2018-05-03 01:30 | PDOC ---
*Physical Exam - Vital Signs Last Vital Signs Temp Pulse Resp BP Pulse Ox 97.4 F L 74 21 H 133/81 94 L 05/02/18 23:15 05/02/18 23:15 05/02/18 23:15 05/02/18 23:15 05/02/18 23:15 ED Treatment Course - LABORATORY CBC & Chemistry Diagram: 05/03/18 04:39 05/03/18 04:39 Medical Decision Making - Medical Decision Making 05/03/18 01:30 Patient seen by the advanced practice provider under my direct supervision. Ancillary testing reviewed as necessary. I agree with plan as outlined by the advanced practice provider. *DC/Admit/Observation/Transfer Diagnosis at time of Disposition: Acute exacerbation of chronic obstructive pulmonary disease (COPD) - Referrals Referrals: Ingrid Alvarez [Primary Care Provider] - - Patient Instructions - Post Discharge Activity
[2018-05-03] MEDS ORDERED: predniSONE 20 MG TABLET (UD) PO ONE (01:45)
[2018-05-03] MEDS ORDERED: predniSONE 20 MG TABLET (UD) ONE (02:01)
[2018-05-03] MEDS ORDERED: ALBUTEROL SO4 2.5/IPRATROPIUM 0.5 INH SOL 3 ML VIAL.NEB. NEB ONE (02:01)
[2018-05-03] MEDS: ALBUTEROL SO4 2.5/IPRATROPIUM 0.5 INH SOL 3 ML VIAL.NEB. NEB SCH ×6 (02:02→21:10)
--- NOTE | 2018-05-03 02:40 | PDOC ---
History of Present Illness - General Chief Complaint: Shortness of Breath Stated Complaint: COLD SYMPTOMS Time Seen by Provider: 05/03/18 01:28 History Source: Patient Exam Limitations: No Limitations Past History - Past Medical History Allergies/Adverse Reactions: Allergies Allergy/AdvReac Type Severity Reaction Status Date / Time egg Allergy Severe Hives Verified 05/02/18 23:21 Fish Containing Products Allergy Severe Hives Verified 05/02/18 23:21 peanut Allergy Severe Difficulty Verified 05/02/18 23:21 Breathing NKDA Allergy Uncoded 05/02/18 23:21 Home Medications: Ambulatory Orders Albuterol Sulfate Inhaler - [Ventolin HFA Inhaler -] 2 inh PO Q4H PRN 01/19/17 Anemia: Yes (MVI) Asthma: No Cancer: No Cardiac Disorders: No CVA: No COPD: Yes CHF: No Dementia: No Diabetes: No GI Disorders: No Disorders: No HTN: No Hypercholesterolemia: No Kidney Stones: No Liver Disease: No Seizures: No Thyroid Disease: No - Surgical History Abdominal Surgery: No Appendectomy: No Cardiac Surgery: No Cholecystectomy: No Lung Surgery: No Neurologic Surgery: No Orthopedic Surgery: No - Reproductive History PID: No - Immunization History Immunization Up to Date: No - Suicide/Smoking/Psychosocial Hx Smoking History: Current every day smoker Have you smoked in the past 12 months: Yes Number of Cigarettes Smoked Daily: 10 Information on smoking cessation initiated: No 'Breaking Loose' booklet given: 01/19/17 Hx Alcohol Use: Yes (daily) Drug/Substance Use Hx: Yes (herion) Substance Use Type: Alcohol, Heroin Hx Substance Use Treatment: Yes (Last detox [facility] 01/19/17 -01/22/17.) *Physical Exam - Vital Signs Last Vital Signs Temp Pulse Resp BP Pulse Ox 97.4 F L 74 21 H 133/81 94 L 05/02/18 23:15 05/02/18 23:15 05/02/18 23:15 05/02/18 23:15 05/02/18 23:15 - Physical Exam General Appearance: No: Apparent Distress Respiratory/Chest: positive: Other (poor inspiratory effort, unable to hear any wheezing, rhonchi or rales). negative: Respiratory Distress, Labored Respiration, Paradoxal Breathing Cardiovascular: positive: Regular Rhythm, Regular Rate, S1, S2. negative: Murmur Extremity: positive: Normal Inspection. negative: Pedal Edema, Calf Tenderness Neurologic: positive: Alert, Normal Mood/Affect Moderate Sedation - Procedure Monitoring Vital Signs: Procedure Monitoring Vital Signs Temperature 97.4 F L 05/02/18 23:15 Pulse Rate 74 05/02/18 23:15 Respiratory Rate 21 H 05/02/18 23:15 Blood Pressure 133/81 05/02/18 23:15 O2 Sat by Pulse Oximetry (%) 94 L 05/02/18 23:15 ED Treatment Course - LABORATORY CBC & Chemistry Diagram: 05/03/18 04:39 05/03/18 04:39 - RADIOLOGY Radiology Studies Ordered: Category Date Time Status CHEST PA & LAT [RAD] Stat Radiology 05/03/18 02:10 Ordered - Medications Given in the ED: ED Medications Discontinued Medications Generic Name Dose Route Start Last Admin Trade Name Freq PRN Reason Stop Dose Admin Albuterol/Ipratropium 1 amp 05/03/18 01:45 05/03/18 02:26 Duoneb - NEB 05/03/18 02:16 1 amp Q15M JARED Administration Prednisone 60 mg 05/03/18 01:45 05/03/18 02:02 Deltasone - PO 05/03/18 01:46 60 mg ONCE ONE Administration Medical Decision Making - Medical Decision Making 53 y/o F smoker (x 10 years, minimum 5 cigs/day), COPD, alcohol/heroin abuse ( used to do IV heroin but stopped that 5 years ago; now snorts heroin; last used yesterday) presents with cough x 2-3 days with tightness across chest ( underneath breasts) and SOB. Patient tried using Albuterol without much relief. Denies taking any other meds for COPD; has not seen her estimator binding in a long time. Denies fever, rhinorrhea, congestion, sore throat, abd pain, n/v, calf swelling, calf pain. Possible COPD exacerbation Plan: Duonebs x3, Prednisone, EKG, CXR, reassess 05/03/18 02:36 EKG shows NSR at 84 bpm, no St-T changes CXR wet read negative Upon further review, patient had TTE done 2015 raising concern for pulmonary HTN Patient not feeling any better despite duonebs and steroids Will get labs 05/03/18 04:01 Labs only notable for slightly elevated CO2 and bicarb, pH normal (likely related to COPD) Patient appears well and also noted ambulating around ED well However, patient endorses still not feeling well Will admit for further evaluation 05/03/18 06:10 Pending to hear back from admitting team Will endorse to incoming SAMANTHA 05/03/18 07:00 *DC/Admit/Observation/Transfer Diagnosis at time of Disposition: Acute exacerbation of chronic obstructive pulmonary disease (COPD) - Discharge Dispostion Condition at time of disposition: Stable Decision to Admit order: Yes - Referrals Referrals: Ingrid Alvarez [Primary Care Provider] - - Patient Instructions - Post Discharge Activity
[2018-05-03 04:54] LABS: BASO % 0.4 % (0-2.0); EOS % 1.1 % (0-4.5); HEMATOCRIT 34.1 % (32.4-45.2); HEMOGLOBIN 11.3 GM/dL (10.7-15.3); LYMPH % 22.6 % (8-40); MCH 27.5 pg (25.7-33.7); MCHC 33.3 g/dl (32.0-36.0); MEAN CELL VOLUME 82.6 fl (80-96); MEAN PLT VOLUME 7.4 fl (7.5-11.1); MONO % 10.9 % (3.8-10.2); PLATELET COUNT 173 K/MM3 (134-434); RBC 4.12 M/mm3 (3.60-5.2); RDW 16.4 % (11.6-15.6); WHITE BLOOD COUNT 6.1 K/mm3 (4.0-10.0)
[2018-05-03 05:12] LABS: VENOUS PH 7.35 (7.32-7.42)
[2018-05-03 05:16] LABS: VENOUS PC02 60.2 mmHg (38-52)
[2018-05-03 05:50] LABS: ANION GAP 5 MMOL/L (8-16); BLOOD UREA NITROGEN 9 mg/dL (7-18); CALCIUM 8.3 mg/dL (8.5-10.1); CHLORIDE 101 mmol/L (98-107); CO2 32 mmol/L (21-32); GLUCOSE,RANDOM 112 mg/dL (74-106); MAGNESIUM 2.1 mg/dL (1.8-2.4); N-TERMINAL BNP 85.2 pg/ml (5-125); PHOSPHOROUS 3.5 mg/dL (2.5-4.9); POTASSIUM 3.7 mmol/L (3.5-5.1); SODIUM 138 mmol/L (136-145)
--- NOTE | 2018-05-03 10:10 | EKG ---
Test Reason : Blood Pressure : / mmHG Vent. Rate : 084 BPM Atrial Rate : 084 BPM P-R Int : 152 ms QRS Dur : 070 ms QT Int : 364 ms P-R-T Axes : 075 079 063 degrees QTc Int : 430 ms POOR DATA QUALITY, INTERPRETATION MAY BE ADVERSELY AFFECTED NORMAL SINUS RHYTHM POSSIBLE LEFT ATRIAL ENLARGEMENT BORDERLINE ECG WHEN COMPARED WITH ECG OF 12-DEC-2017 23:33, NO SIGNIFICANT CHANGE WAS FOUND Confirmed by BRANDI DE LA ROSA, MARIA GUADALUPE ([id number]) on 05/03/2018 10:10:49 AM Referred By: Confirmed By:MARIA GUADALUPE PAZ MD
[2018-05-03 11:20] VITALS: BMI 23.0
[2018-05-03] MEDS ORDERED: ALBUTEROL SO4 0.083% IH SOL 2.5 MG/3 ML VIAL.NEB. NEB PRN (11:39)
[2018-05-03] MEDS ORDERED: LORazepam 1 MG TABLET PO PRN (11:41)
[2018-05-03] MEDS ORDERED: ACETAMINOPHEN 325 MG TABLET (FP) PO PRN (11:42)
[2018-05-03] MEDS ORDERED: AZITHROMYCIN 250 MG TABLET PO ONE (11:43)
--- NOTE | 2018-05-03 11:44 | HP ---
Admitting History and Physical - Primary Care Physician PCP: Rosa Carlson - Admission Chief Complaint: SOB. Cough History of Present Illness: 53 y/o F smoker (x 10 years, minimum 5 cigs/day), COPD, alcohol/heroin abuse ( used to do IV heroin but stopped that 5 years ago; now snorts heroin; last used yesterday) presents with cough x 2-3 days with tightness across chest ( underneath breasts) and SOB. Patient tried using Albuterol without much relief. 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 Denies fever, rhinorrhea, congestion, sore throat, abd pain, n/v, calf swelling, calf pain. Possible COPD exacerbation Pt states she has had cough for over 2 years, but lately she has been more short of breath History Source: Patient, Medical Record Limitations to Obtaining History: No Limitations - Past Medical History Pulmonary: Yes: Asthma ...: No - Smoking History Smoking history: Current every day smoker Have you smoked in the past 12 months: Yes Aproximately how many cigarettes per day: 10 - Alcohol/Substance Use Hx Alcohol Use: Yes (daily) History of Substance Use: reports: Heroin Home Medications - Allergies Allergies/Adverse Reactions: Allergies Allergy/AdvReac Type Severity Reaction Status Date / Time egg Allergy Severe Hives Verified 05/02/18 23:21 Fish Containing Products Allergy Severe Hives Verified 05/02/18 23:21 peanut Allergy Severe Difficulty Verified 05/02/18 23:21 Breathing NKDA Allergy Uncoded 05/02/18 23:21 - Home Medications Home Medications: Ambulatory Orders Albuterol Sulfate Inhaler - [Ventolin HFA Inhaler -] 2 inh PO Q4H PRN 01/19/17 Review of Systems - Review of Systems Constitutional: reports: No Symptoms Eyes: reports: No Symptoms HENT: reports: No Symptoms Neck: reports: No Symptoms Cardiovascular: reports: Shortness of Breath Respiratory: reports: Cough (from past 2 years), SOB, SOB on Exertion Gastrointestinal: reports: No Symptoms Genitourinary: reports: No Symptoms Breasts: reports: No Symptoms Reported Integumentary: reports: No Symptoms Neurological: reports: No Symptoms Endocrine: reports: No Symptoms Hematology/Lymphatic: reports: No Symptoms Psychiatric: reports: No Symptoms Physical Examination Vital Signs: Vital Signs Temperature 98.3 F 05/03/18 07:30 Pulse Rate 61 05/03/18 07:30 Respiratory Rate 17 05/03/18 07:30 Blood Pressure 104/69 05/03/18 07:30 O2 Sat by Pulse Oximetry (%) 97 05/03/18 07:30 Constitutional: Yes: Well Nourished, No Distress, Calm Cardiovascular: Yes: Regular Rate and Rhythm Respiratory: Yes: Regular Gastrointestinal: Yes: Normal Bowel Sounds, Soft Musculoskeletal: Yes: WNL Extremities: Yes: WNL Edema: No Peripheral Pulses WNL: Yes Neurological: Yes: Alert, Oriented Psychiatric: Yes: Alert, Oriented Labs: CBC, BMP 05/03/18 04:39 05/03/18 04:39 Imaging - Results Chest X-ray: Report Reviewed Cat Scan: Pending Problem List - Problems (1) Cocaine abuse Assessment/Plan: -Detox consult -Ativan 1 mg po BID PRN Code(s): F14.10 - COCAINE ABUSE, UNCOMPLICATED (2) Substance induced mood disorder Code(s): F19.94 - OTH PSYCHOACTIVE SUBSTANCE USE, UNSP W MOOD DISORDER (3) History of chronic obstructive pulmonary disease Assessment/Plan: -Pulmonary consult -Chest CT -Bronchodilators -IV medrol -CXR reviewed-suspicion of RLL infiltrate -Azithromycin PO Code(s): Z87.09 - PERSONAL HISTORY OF OTHER DISEASES OF THE RESPIRATORY SYSTEM (4) Cough Code(s): R05 - COUGH (5) Shortness of breath Assessment/Plan: -Pulmonary + Cardiology consult -Chest CT -Echo -bronchodilators -IV medrol -PO Azithromycin -ID consult -Nasal O2 PRN Code(s): R06.02 - SHORTNESS OF BREATH Assessment/Plan see problem list
[2018-05-03] MEDS ORDERED: PT OWN MED DRAWER 7, Y5N ONE (12:19)
[2018-05-03] MEDS: PANTOPRAZOLE 40 MG TABLET (FP) PO SCH (12:24)
[2018-05-03] MEDS: BUDESONIDE/FORMETEROL FUMARATE 160/4.5 mcg INHALER IH SCH ×2 (12:25→22:49)
--- NOTE | 2018-05-03 13:06 | PN ---
Progress Note (short form) - Note Progress Note: PULMONARY CONSULTATION DICTATED 05/03/18 IMP ACUTE HYPERCAPNEIC RESPIRATORY FAILURE COPD EXACERBATION TOBACCO ABUSE PLAN IV STEROIDS INHALED BRONCHODILATORS O2 CHEST CT PFTS OUTPATIENT SMOKING CESSATION COUNSELED ECHO ROBERTO FERNANDEZ Problem List - Problems (1) Acute hypercapnic respiratory failure Code(s): J96.02 - ACUTE RESPIRATORY FAILURE WITH HYPERCAPNIA (2) Acute exacerbation of chronic obstructive pulmonary disease (COPD) Code(s): J44.1 - CHRONIC OBSTRUCTIVE PULMONARY DISEASE W (ACUTE) EXACERBATION (3) Alcohol dependence with uncomplicated withdrawal Code(s): F10.230 - ALCOHOL DEPENDENCE WITH WITHDRAWAL, UNCOMPLICATED (4) Nicotine dependence Code(s): F17.200 - NICOTINE DEPENDENCE, UNSPECIFIED, UNCOMPLICATED Qualifiers: Nicotine product type: cigarettes Substance use status: uncomplicated Qualified Code(s): F17.210 - Nicotine dependence, cigarettes, uncomplicated
[2018-05-03 14:26] LABS: ARTERIAL BLD GAS O2 SATURATION 95.3 % (90-98.9); ARTERIAL BLOOD GAS PCO2 45.4 mmHg (35-45); ARTERIAL BLOOD GAS PO2 78.5 mmHg (80-100); ARTERIAL BLOOD GAS pH 7.39 (7.35-7.45)
[2018-05-03 14:37] LABS: ALLENS TEST POSITIVE
[2018-05-03] MEDS ORDERED: CEFTRIAXONE 1 GM in DEXTROSE 5%-WATER - 50 ML IVPB SCH (15:00)
[2018-05-03] MEDS: methylPREDNISolone NA SUCC 40 MG/1 ML VIAL IVPUSH SCH ×2 (15:03→22:00)
--- NOTE | 2018-05-03 15:08 | PN ---
Progress Note (short form) - Note Progress Note: ID consult dictated imp/reccd 53 yo female pmh copd, heroine use (sniffs heroine) active etoh use active cigarette use 3 day history of cough with cob and chest tightness recent hiv test negative, hep c negative had diarrhea prior to admit- now resolved last admit to hospital 2 months ago for food poisoning reports hep c negative per her PMD cxray with RLL infiltrate ?copd exacerbation no fevers RLL pneumonia agree with ct scan influenza and rsv screen rocephin/zith blood cultures urinary antigens substance use history- detox consult pending ?copd- per pulmonary Problem List - Problems (1) RLL pneumonia Code(s): J18.1 - LOBAR PNEUMONIA, UNSPECIFIED ORGANISM (2) Substance use disorder Code(s): F19.90 - OTHER PSYCHOACTIVE SUBSTANCE USE, UNSPECIFIED, UNCOMPLICATED (3) COPD with acute exacerbation Code(s): J44.1 - CHRONIC OBSTRUCTIVE PULMONARY DISEASE W (ACUTE) EXACERBATION
--- NOTE | 2018-05-03 15:48 | CON.CARD ---
Consult Consult Specialty:: Cardiology Reason for Consultation:: SOB. Chest pain - History of Present Illness Chief Complaint: ALVARADO. Chest pain History of Present Illness: This is a 53 year old female with a PMH os smoking, COPD, substance abuse ( heroin/ETOH, used to do IV heroin but stopped that 5 years ago; now snorts heroin; last used yesterday). She presents now with a cough, mostly non productive, worsening ALVARADO, and atypical chest pain, worse with a deep breath. - Past Medical History Pulmonary: Yes: Asthma ...: No - Alcohol/Substance Use Hx Alcohol Use: Yes (daily) History of Substance Use: reports: Heroin - Smoking History Smoking history: Current every day smoker Have you smoked in the past 12 months: Yes Aproximately how many cigarettes per day: 10 Home Medications - Allergies Allergies/Adverse Reactions: Allergies Allergy/AdvReac Type Severity Reaction Status Date / Time egg Allergy Severe Hives Verified 05/02/18 23:21 Fish Containing Products Allergy Severe Hives Verified 05/02/18 23:21 peanut Allergy Severe Difficulty Verified 05/02/18 23:21 Breathing NKDA Allergy Uncoded 05/02/18 23:21 - Home Medications Home Medications: Ambulatory Orders Albuterol Sulfate Inhaler - [Ventolin HFA Inhaler -] 2 inh PO Q4H PRN 01/19/17 Vital Signs: Vital Signs Temperature 98.3 F 05/03/18 07:30 Pulse Rate 61 05/03/18 07:30 Respiratory Rate 17 05/03/18 07:30 Blood Pressure 104/69 05/03/18 07:30 O2 Sat by Pulse Oximetry (%) 96 05/03/18 10:00 Constitutional: Yes: No Distress HENT: Yes: WNL Neck: Yes: WNL Respiratory: Yes: Rhonchi (Mild Scattered bilateral) Gastrointestinal: Yes: Soft Cardiovascular: Yes: Regular Rate and Rhythm (NL S1S2 no MRHG) JVD: No Extremities: Yes: WNL Edema: No Neurological: Yes: Alert, Oriented - Other Data Labs, Other Data: CBC, BMP 05/03/18 04:39 05/03/18 04:39 Troponin, BNP 05/03/18 04:39 Troponin I 0.03 B-Natriuretic Peptide 85.2 Troponin, BNP 05/03/18 04:39 Troponin I 0.03 B-Natriuretic Peptide 85.2 Assessment/Plan 53 year old female with a PMH of smoking, COPD, substance abuse (heroin/ETOH, used to do IV heroin but stopped that 5 years ago; now snorts heroin; last used yesterday). She presents now with a cough, mostly non productive, worsening ALVARADO , and atypical chest pain, worse with a deep breath. Chest pain No acute changes on EKG and 1st troponin negative. Would obtain an echocardiogram (had an echo in 2016 which showed NL LV function and increased RVSP likely secondary to pulmonary disease). Would get a stress test, however, would like to rule out cocaine use prior to stress testing. The stress test to be done as an outpatient when off of ABX.
[2018-05-03] MEDS ORDERED: cefTRIAXone SODIUM 1 GM VIAL ONE (16:49)
[2018-05-03] MEDS ORDERED: DEXTROSE 5%-WATER - 50 ML IVPB ONE (16:49)
[2018-05-03] MEDS: LORazepam 1 MG TABLET PO PRN (22:52)
[2018-05-04] MEDS: methylPREDNISolone NA SUCC 40 MG/1 ML VIAL IVPUSH SCH ×2 (02:03→09:13)
[2018-05-04] MEDS: LORazepam 1 MG TABLET PO PRN (06:49)
[2018-05-04] MEDS: ALBUTEROL SO4 2.5/IPRATROPIUM 0.5 INH SOL 3 ML VIAL.NEB. NEB SCH (07:45)
[2018-05-04] MEDS ORDERED: PT OWN MED DRAWER 7, Y5N ONE (09:06)
[2018-05-04] MEDS: BUDESONIDE/FORMETEROL FUMARATE 160/4.5 mcg INHALER IH SCH (09:13)
[2018-05-04] MEDS: PANTOPRAZOLE 40 MG TABLET (FP) PO SCH (09:13)
--- NOTE | 2018-05-04 09:41 | PN ---
Progress Note (short form) - Note Progress Note: Congested cough. No CP. No acute events overnight. Intake & Output 05/01/18 05/02/18 05/03/18 05/04/18 23:59 23:59 23:59 23:59 Intake Total 290 200 Balance 290 200 Weight 140 lb 134 lb Last Vital Signs Temp Pulse Resp BP Pulse Ox 98.5 F 53 L 20 145/79 96 05/04/18 05:42 05/04/18 05:42 05/04/18 05:42 05/04/18 05:42 05/03/18 20:39 Active Medications Acetaminophen (Tylenol -) 650 mg PO Q4H PRN PRN Reason: PAIN OR FEVER Albuterol Sulfate (Ventolin 0.083% Nebulizer Soln -) 1 amp NEB Q4H PRN PRN Reason: SHORT OF BREATH/WHEEZING Albuterol/Ipratropium (Duoneb -) 1 amp NEB RQID [facility] Last Admin: 05/04/18 07:45 Dose: 1 amp Azithromycin (Zithromax -) 250 mg PO DAILY [facility] Last Admin: 05/04/18 09:13 Dose: 250 mg Budesonide/Formoterol Fumarate (Symbicort 160/4.5mcg -) 2 puff IH BID [facility] Last Admin: 05/04/18 09:13 Dose: 2 puff Enoxaparin Sodium (Lovenox -) 30 mg SQ DAILY [facility] Last Admin: 05/04/18 09:18 Dose: Not Given Ceftriaxone Sodium 1 gm/ (Dextrose) 50 mls @ 100 mls/hr IVPB HS [facility]; Protocol Lorazepam (Ativan -) 1 mg PO Q8H PRN PRN Reason: WITHDRAWAL(CONT SUBST) Last Admin: 05/04/18 06:49 Dose: 1 mg Methylprednisolone Sodium Succinate (Solu-Medrol -) 40 mg IVPUSH Q6H-IV JARED Last Admin: 05/04/18 09:13 Dose: 40 mg Pantoprazole Sodium (Protonix -) 40 mg PO DAILY [facility] Last Admin: 05/04/18 09:13 Dose: 40 mg Constitutional: Yes: No Distress Cardiovascular: Yes: Regular Rate and Rhythm Respiratory: Yes: Few scattered rhonchi and expiratory wheeze Gastrointestinal: Yes: Normal Bowel Sounds, Soft Musculoskeletal: Yes: WNL Extremities: Yes: WNL Edema: No Peripheral Pulses WNL: Yes Neurological: Yes: Alert, Oriented Psychiatric: Yes: Alert, Oriented Labs: Laboratory Results - last 24 hr 05/03/18 14:09 Puncture Site Right radial ABG pH 7.39 ABG pCO2 at Pt Temp 45.4 H ABG pO2 at Pt Temp 78.5 L ABG HCO3 26.8 H ABG O2 Sat (Measured) 95.3 ABG O2 Content 14.2 L ABG Base Excess 2.0 Nahun Test Positive O2 Delivery Device Room air Oxygen Flow Rate 21% Problem List - Problems (1) Acute hypercapnic respiratory failure Code(s): J96.02 - ACUTE RESPIRATORY FAILURE WITH HYPERCAPNIA (2) Acute exacerbation of chronic obstructive pulmonary disease (COPD) Code(s): J44.1 - CHRONIC OBSTRUCTIVE PULMONARY DISEASE W (ACUTE) EXACERBATION (3) Alcohol dependence with uncomplicated withdrawal Code(s): F10.230 - ALCOHOL DEPENDENCE WITH WITHDRAWAL, UNCOMPLICATED (4) Nicotine dependence Code(s): F17.200 - NICOTINE DEPENDENCE, UNSPECIFIED, UNCOMPLICATED Qualifiers: Nicotine product type: cigarettes Substance use status: uncomplicated Qualified Code(s): F17.210 - Nicotine dependence, cigarettes, uncomplicated IMP ACUTE HYPERCAPNEIC RESPIRATORY FAILURE COPD EXACERBATION TOBACCO ABUSE PLAN IV STEROIDS INHALED BRONCHODILATORS O2 CHEST CT ORDERED PFTS OUTPATIENT SMOKING CESSATION COUNSELED Dr Marin '
[2018-05-04] MEDS ORDERED: AZITHROMYCIN 250 MG TABLET PO SCH ×2 (10:00)
[2018-05-04] MEDS ORDERED: ENOXAPARIN NA (PORCINE) 30 MG/0.3 ML DISP.SYRIN SQ SCH (10:00)
[2018-05-04 10:16] LABS: COCAINE, UR NEGATIVE ng/ml (CUTOFF=300); METHADONE, UR NEGATIVE ng/ml (CUTOFF=300); PHENCYCLIDINE,URINE NEGATIVE ng/ml (CUTOFF=25); URINE AMPHETAMINES NEGATIVE ng/ml (CUTOFF=500); URINE BARBITURATES NEGATIVE ng/ml (CUTOFF=200); URINE BENZODIAZEPINES NEGATIVE ng/ml (CUTOFF=200)
[2018-05-04 10:26] LABS: OPIATES, URI POSITIVE ng/ml (CUTOFF=300)
[2018-05-04 10:56] VITALS: BP 143/89; PULSE 89; TEMP 98.6
--- NOTE | 2018-05-04 11:08 | CONS ---
DATE OF CONSULTATION: DATE OF DICTATION: 05/03/2018 INFECTIOUS DISEASE CONSULTATION REQUESTING PHYSICIAN: Rosa Carlson M.D. CONSULTING PHYSICIAN: Neil Paula M.D. HISTORY OF PRESENT ILLNESS: This is a 53-year-old woman who was admitted on the with complaints of 3 days of cough and shortness of breath and chest tightness. She is an active cigarette smoker. She smokes a pack a day. She has a history of alcohol use. She drinks 2 beers a day, and she sniffs heroin. She has multiple inhalers at home that she says she tries to use but never help her with her shortness of breath. She presented with these complaints. She denies any fevers or chills. She has a cough that is not productive. She had a chest x-ray done in the emergency room that was notable for a right lower lobe infiltrate. I am asked to see her for further evaluation. PAST MEDICAL HISTORY: Notable for asthma and substance use. SOCIAL HISTORY: She smokes daily. ALLERGIES: EGGS, FISH, PEANUTS. MEDICATION: She uses her inhaler intermittently but reports it does not help. TRAVEL HISTORY: She has been to [place] 4 times this year. She is HIV negative, was recently tested in at a clinic. She states she has been told her hepatitis C is not active by her PMD. REVIEW OF SYSTEMS: As per HPI. She has no dysuria or abdominal pain or chest pain. PHYSICAL EXAMINATION: VITAL SIGNS: Her temperature is 98.4, pulse is 79, blood pressure 129/70, respiratory rate 18. She is saturating 96% on room air. HEENT: Normocephalic. Eyes are anicteric. NECK: Supple. LUNGS: Poor air movement. HEART: Regular rate and rhythm. ABDOMEN: Soft, nontender. EXTREMITIES: Without edema. LABORATORY: Her white count is 6.1, hemoglobin 11.3, platelets of 173, BUN and creatinine are 9 and 1. IMPRESSION: 1. In summary, this is a 53-year-old woman who has no fevers, but she does have this acute onset of cough and shortness of breath with an abnormal chest x-ray, so I would treat her for community-acquired pneumonia. Last hospitalization was 2 months ago for food poisoning; it was in [place]. I would treat her with ceftriaxone and Zithromax, obtain cultures, legionella urinary antigen, as well as influenza screen. I would agree with CAT scan of the chest to further evaluate. 2. Substance use history, detox consult pending. 3. Possible chronic obstructive pulmonary disease. NEIL PAULA M.D. [id number]
--- NOTE | 2018-05-04 11:21 | CONS ---
DATE OF CONSULTATION: 05/03/2018 REFERRING PHYSICIAN: HISTORY OF PRESENT ILLNESS: The patient is a 53-year-old black female, past medical history of likely COPD, history of ETOH and heroin used to IV but stopped 5 years ago, now currently snorts heroin, last used the day prior to admission, presented to [facility] with complaints of cough, dyspnea x 2 to 3 days. Patient states for the past couple of years, though, she has been noting increased shortness of breath and dyspnea on exertion. Apparently saw a retail visual merchandiser in the past and told she had COPD but has not had followup. Past couple of days prior to admission she started developing cough, chest tightness, shortness of breath and wheezing. Denied any chest pain, nausea, vomiting or diaphoresis. States had to use inhaler without any improvement. She presented to the emergency room with the above. In the ER she was noted on venous blood gas to have elevated CO2. She was admitted to the floor and started on inhaled bronchodilators. The patient denies any fever, chills. No history of recent URI symptoms. No history of respiratory failure in the past with no ventilatory support. PAST MEDICAL HISTORY: Again includes COPD, history of substance abuse. SOCIAL HISTORY: positive smoking. CURRENT MEDICATIONS: Include Zithromax, Symbicort, Tylenol, Lovenox, Ativan and Protonix. PHYSICAL EXAMINATION: General: The patient is a well-developed, well-nourished female, awake, alert, mildly dyspneic but in no acute distress. Vital Signs: O2 saturation is 97% on room air, heart rate is 80, she is afebrile, blood pressure 104/69. HEENT: Normocephalic, atraumatic. Neck: Supple. Heart: Regular S1, S2. Chest: She has got bilateral wheezes. Abdomen: Soft. Bowel sounds are positive. Extremities: No cyanosis or edema. LABORATORIES: WBC is 6.1, hemoglobin 11.2, hematocrit 34.1, with a platelet count of 173,000. Venous Blood Gas: 7.35, PCO2 of 50, PO2 of 32, bicarbonate of 32 on I assume room air. BUN 9, creatinine 1.0. Chest X-ray: There is opacity in the right cardiophrenic angle. IMPRESSION: 1. Acute hypercapnic respiratory failure. 2. Likely advanced chronic obstructive pulmonary disease with exacerbation. 3. Pneumonia, right lower lobe. 4. History of substance abuse. 5. Tobacco abuse. PLAN: IV steroids. Inhaled bronchodilators and antibiotic therapy. CT scan of the chest. Monitor peak flow with PFTs outpatient. Yearly low-dose chest CT. Smoking cessation counseled. Obtain echocardiogram. SOLO FERNANDEZ M.D. [id number]
--- NOTE | 2018-05-04 13:11 | ECHO ---
Name: KATHY LOPES Exam:Adult Echocardiogram Study Date: 05/04/2018 08:26 AM Age: 53 yrs Reason For Study: Arrhythmia Height: 64 in Weight: 134 lb BSA: 1.6 m2 MMode/2D Measurements & Calculations IVSd: 0.80 cm Ao root diam: 2.7 cm LVIDd: 3.6 cm ACS: 1.9 cm LVIDs: 2.6 cm LVPWd: 0.82 cm EDV(Teich): 54.1 ml LVOT diam: 2.0 cm ESV(Teich): 25.2 ml RV S Júnior: 15.7 cm/sec Doppler Measurements & Calculations Ao V2 max: 181.0 cm/sec LV V1 max P.7 mmHg Ao max P.1 mmHg LV V1 mean P.6 mmHg LV V1 max: 119.4 cm/sec SHANICE(V,D): 2.1 cm2 LV V1 mean: 74.2 cm/sec LV V1 VTI: 24.3 cm SV(LVOT): 75.7 ml Med Peak E' Júnior: 7.9 cm/sec Lat Peak E' Júnior: 9.8 cm/sec Procedure A complete two-dimensional transthoracic echocardiogram was performed (2D, M-mode, Doppler and color flow Doppler). Left Ventricle The left ventricular size, thickness and function are normal. The left ventricular ejection fraction is normal. Ejection Fraction = 60-65%. The left ventricular wall motion is normal. Right Ventricle The right ventricle is normal in size and function. Atria Normal left and right atrial size and function. Mitral Valve There is no mitral regurgitation noted. Tricuspid Valve There is trace tricuspid regurgitation. There was insufficient TR detected to calculate RV systolic p ressure. Aortic Valve The aortic valve is trileaflet. No hemodynamically significant valvular aortic stenosis. No aortic regurgitation is present. Pulmonic Valve There is no pulmonic valvular regurgitation. Great Vessels The aortic root is normal size. Pericardium/Pleura There is no pericardial effusion. Interpretation Summary The left ventricular size, thickness and function are normal The right ventricle is normal in size and function. There is trace tricuspid regurgitation. MD Iain Fields 05/04/2018 01:11 PM
--- NOTE | 2018-05-04 16:27 | DS ---
Physical Examination Vital Signs: Vital Signs Temperature 98.6 F 05/04/18 09:00 Pulse Rate 89 05/04/18 09:00 Respiratory Rate 20 05/04/18 09:00 Blood Pressure 143/89 05/04/18 09:00 O2 Sat by Pulse Oximetry (%) 96 05/04/18 09:00 Labs: CBC, BMP 05/03/18 04:39 05/03/18 04:39 Discharge Summary Reason For Visit: CHRONIC OBST PULM DISEASE W ACUTE EXACERBATION Hospital Course: PCP: Rosa Carlson - Admission Chief Complaint: SOB. Cough History of Present Illness: 53 y/o F smoker (x 10 years, minimum 5 cigs/day), COPD, alcohol/heroin abuse ( used to do IV heroin but stopped that 5 years ago; now snorts heroin; last used yesterday) presents with cough x 2-3 days with tightness across chest ( underneath breasts) and SOB. Patient tried using Albuterol without much relief. 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 Denies fever, rhinorrhea, congestion, sore throat, abd pain, n/v, calf swelling, calf pain. went to patient she eloped Condition: Stable - Instructions Referrals: Ingrid Alvarez [Primary Care Provider] - Disposition: ELOPED - Home Medications Comprehensive Discharge Medication List: Ambulatory Orders Albuterol Sulfate Inhaler - [Ventolin HFA Inhaler -] 2 inh PO Q4H PRN 01/19/17
--- NOTE | 2018-05-04 16:32 | PN ---
Progress Note, Physician Chief Complaint: saw patient in ER she earlier eloped and was then came back to ER and was sent to give a urien sample, she didnt leave bathroom when bathroom door was opened she was found unresponsive with needle in arm urine tox positive for opiates and when her items where search heroine was found she is in ER seen by psych and not suicidal at this time - Objective Vital Signs: Vital Signs Temperature 98.6 F 05/04/18 09:00 Pulse Rate 89 05/04/18 09:00 Respiratory Rate 20 05/04/18 09:00 Blood Pressure 143/89 05/04/18 09:00 O2 Sat by Pulse Oximetry (%) 96 05/04/18 09:00 Constitutional: Yes: Calm Cardiovascular: Yes: Regular Rate and Rhythm, S1, S2 Respiratory: Yes: Diminished Gastrointestinal: Yes: Normal Bowel Sounds, Soft Edema: No Neurological: Yes: Alert, Oriented Labs: CBC, BMP 05/03/18 04:39 05/03/18 04:39 Problem List - Problems (1) Cocaine abuse Assessment/Plan: seen by detox for [facility] Code(s): F14.10 - COCAINE ABUSE, UNCOMPLICATED Assessment/Plan plan to leave ER on prednisione azithromycin and nebulizers
[2018-05-04] MEDS ORDERED: CEFTRIAXONE 1 GM in DEXTROSE 5%-WATER - 50 ML IVPB SCH (22:00)
== END 2018-05-04 11:22 | disposition other institution (70) | DRG 140 ==
LOC: JER 23:11 → JERBED 05-03 07:01 → J6S 05-03 08:54
PROVIDERS: ADMIT Family Medicine; ATTEND Family Medicine
DX: J44.1 Chronic obstructive pulmonary disease with (acute) exacerbation (principal); J96.02 Acute respiratory failure with hypercapnia; F11.20 Opioid dependence, uncomplicated; F10.20 Alcohol dependence, uncomplicated; D64.9 Anemia, unspecified; F17.210 Nicotine dependence, cigarettes, uncomplicated; F16.10 Hallucinogen abuse, uncomplicated
CPT/HCPCS: 36415; 36600; 71046-TC-FY; 80048; 80307; 82803; 83735; 83880; 84100; 84484; 85025; 87899; 93005; 93010; 93306-TC; 94640; 99285-25

== ENCOUNTER 2018-05-04 10:51 | Emergency (ER) | payer OTHER ==
[2018-05-04 11:04] VITALS: BMI 23.1
[2018-05-04] MEDS ORDERED: NALOXONE HCL 0.4 MG/ML VIAL IVPUSH ONE (12:08)
[2018-05-04] MEDS ORDERED: NALOXONE HCL 0.4 MG/ML VIAL ONE ×2 (12:08→12:12)
[2018-05-04 13:05] LABS: COCAINE, UR NEGATIVE ng/ml (CUTOFF=300); METHADONE, UR NEGATIVE ng/ml (CUTOFF=300); URINE AMPHETAMINES NEGATIVE ng/ml (CUTOFF=500); URINE BARBITURATES NEGATIVE ng/ml (CUTOFF=200); URINE BENZODIAZEPINES NEGATIVE ng/ml (CUTOFF=200)
[2018-05-04 13:07] LABS: OPIATES, URI POSITIVE ng/ml (CUTOFF=300)
[2018-05-04 13:08] LABS: PHENCYCLIDINE,URINE POSITIVE ng/ml (CUTOFF=25)
--- NOTE | 2018-05-04 14:18 | PN ---
[facility] Progress Note (SOAP) Subjective: 53 y.o. female referred for consultation after administration of Narcan for reported OD in ED bathroom , pt denies , states was talking on the phone with her mother , states presented to ED for cough , left AMA yesterday from this facility and returned this morning . Pt reports 10-year use of heroin , IVDU until 5 years ago , currently via inhalation 2 bags /day . Per EMR , prior admission at [facility] 12/12/17 , at which time reported use of heroin was 10 bags / day , and reports latest use of opiates was this morning, pt is evasive about alcohol use at this time , reports " with heroin only" . Denies seizures . tobacco - reports use with heroin use Objective: wnwd , ambulatory , anxious , agitated, reports nausea, diarrhea , irritability . At times dozing off during interview . No yawning noted . resp : no distress noted . Vital Signs Period Temp Pulse Resp BP Sys/Curran Pulse Ox Last 24 Hr 98.3 F 108-112 17-18 132-142/78-100 98-98 Abnormal Lab Results 05/04/18 12:00 Opiates Screen Positive A* Phencyclidine Screen Positive A* Vital Signs - 24 hr 05/04/18 05/04/18 10:54 12:25 Temperature 98.3 F Pulse Rate 108 H Pulse Rate [ 112 H Apical] Respiratory 18 17 Rate Blood Pressure 142/100 Blood Pressure 132/78 [Left Arm] O2 Sat by Pulse 98 98 Oximetry (%) Assessment: opiate dependence PCP use ETOH dependence nicotine dependence Plan: pt agreeable for detox at [facility] when medically cleared . discussed with ER team.
--- NOTE | 2018-05-04 15:28 | PDOC ---
History of Present Illness - General Chief Complaint: Respiratory Stated Complaint: LF BACK PAIN Time Seen by Provider: 05/04/18 11:27 History Source: Patient Exam Limitations: No Limitations - History of Present Illness Initial Comments: 05/04/18 13:55 53 yo female pmh of substance abuse (heroin and alcohol) and COPD admitted yesterday for COPD exacerbation and eloped from the floor to purchase heroin. Pt returned to the hospital 30 min after leaving and was told she needed to return to the ER for readmission. Pt given urine cup, went to the bathroom, injected herself with heroin and was found on the ground, unresponsive with the needle still in her arm. Pt transported to an ED bed, placed and on a monitor and found to be hypoxic into the 80s, place on 15L non re-breather mask, 0.4 mg of narcan given IV. Pt wakes up AOX3 with O2 saturation 100% on RA. Pt states she is now leaving the ED and would like all of her belongings Past History - Past Medical History Allergies/Adverse Reactions: Allergies Allergy/AdvReac Type Severity Reaction Status Date / Time egg Allergy Severe Hives Verified 05/04/18 10:53 Fish Containing Products Allergy Severe Hives Verified 05/04/18 10:53 peanut Allergy Severe Difficulty Verified 05/04/18 10:53 Breathing NKDA Allergy Uncoded 05/04/18 10:53 Home Medications: Ambulatory Orders Albuterol 2.5/Ipratropium 0.5 [Duoneb -] 1 neb IH QID 05/04/18 Azithromycin [Zithromax 250mg Tablets -] 250 mg PO UTDICT #6 tab 05/04/18 predniSONE [Deltasone -] 60 mg PO DAILY #12 tablet 05/04/18 Anemia: Yes (MVI) Asthma: No Cancer: No Cardiac Disorders: No CVA: No COPD: Yes CHF: No Dementia: No Diabetes: No GI Disorders: No Disorders: No HTN: No Hypercholesterolemia: No Kidney Stones: No Liver Disease: No Seizures: No Thyroid Disease: No - Surgical History Abdominal Surgery: No Appendectomy: No Cardiac Surgery: No Cholecystectomy: No Lung Surgery: No Neurologic Surgery: No Orthopedic Surgery: No - Reproductive History PID: No - Immunization History Immunization Up to Date: No - Suicide/Smoking/Psychosocial Hx Smoking History: Current every day smoker Have you smoked in the past 12 months: Yes Number of Cigarettes Smoked Daily: 20 Information on smoking cessation initiated: No 'Breaking Loose' booklet given: 01/19/17 Hx Alcohol Use: Yes Drug/Substance Use Hx: Yes (opiods, last taken 05/01/18) Substance Use Type: Alcohol, Heroin Hx Substance Use Treatment: Yes (Last detox [facility] 01/19/17 -01/22/17.) Review of Systems - Review of Systems Constitutional: No: Weakness Respiratory: No: Shortness of Breath, Wheezing Cardiac (ROS): No: Chest Pain, Lightheadedness, Palpitations Musculoskeletal: No: Back Pain Integumentary: No: Change in Color Neurological: No: Headache, Numbness, Weakness, Unsteady Gait, Ataxia Psychiatric: Yes: Other (pt admits to ) *Physical Exam - Vital Signs Last Vital Signs Temp Pulse Resp BP Pulse Ox 98.3 F 112 H 17 132/78 98 05/04/18 10:54 05/04/18 12:25 05/04/18 12:25 05/04/18 12:25 05/04/18 12:25 - Physical Exam General Appearance: Yes: Nourished, Appropriately Dressed. No: Apparent Distress (pt ambulating, aggitated), Alcohol on Breath HEENT: positive: EOMI, JAHAIRA, Hearing Grossly Normal. negative: Excessive drooling Neck: positive: Supple. negative: Tender midline Respiratory/Chest: positive: Lungs Clear, Normal Breath Sounds. negative: Respiratory Distress, Accessory Muscle Use, Decreased Breath Sounds, Crackles, Rales, Rhonchi, Wheezing Cardiovascular: positive: Regular Rhythm, S1, S2, Tachycardia. negative: Edema , JVD, Murmur Vascular Pulses: Dorsalis-Pedis (R): 4+, Doralis-Pedis (L): 4+ Gastrointestinal/Abdominal: positive: Flat, Soft. negative: Pulsatile Mass, Tenderness Extremity: positive: Normal Capillary Refill, Normal Range of Motion Integumentary: positive: Normal Color, Dry, Warm. negative: Cyanotic Neurologic: positive: production material coordinator II-XII NML intact, Fully Oriented, Alert, Motor Strength 5/5. negative: Normal Mood/Affect, Normal Response Moderate Sedation - Procedure Monitoring Vital Signs: Procedure Monitoring Vital Signs Temperature 98.3 F 05/04/18 10:54 Pulse Rate 112 H 05/04/18 12:25 Respiratory Rate 17 05/04/18 12:25 Blood Pressure 132/78 05/04/18 12:25 O2 Sat by Pulse Oximetry (%) 98 05/04/18 12:25 ED Treatment Course - ADDITIONAL ORDERS Additional order review: Laboratory Results 05/04/18 12:00 Opiates Screen Positive A* Methadone Screen Negative Barbiturate Screen Negative Phencyclidine Screen Positive A* Ur Amphetamines Screen Negative MDMA (Ecstasy) Screen Negative Benzodiazepines Screen Negative Cocaine Screen Negative U Marijuana (THC) Screen Negative - Medications Given in the ED: ED Medications Discontinued Medications Generic Name Dose Route Start Last Admin Trade Name Zeeshan PRN Reason Stop Dose Admin Naloxone HCl 0.4 mg 05/04/18 12:08 05/04/18 12:08 Narcan - IVPUSH 05/04/18 12:09 0.4 mg ONCE ONE Administration Medical Decision Making - Medical Decision Making 53 yo female pmh of substance abuse (heroin and alcohol) and COPD admitted yesterday for COPD exacerbation and eloped from the floor to purchase heroin. Pt returned to the hospital 30 min after leaving and was told she needed to return to the ER for readmission. Pt given urine cup, went to the bathroom, injected herself with heroin and was found on the ground, unresponsive with the needle still in her arm. Pt transported to an ED bed, placed and on a monitor and found to be hypoxic into the 80s, place on 15L non re-breather mask, 0.4 mg of narcan given IV. Pt wakes up AOX3 with O2 saturation 100% on RA. Pt states she is now leaving the ED and would like all of her belongings While attempting to explain that it is in the best interest for the pt to stay in the ER until deemed safe for DC and that if medical staff had not intervened , she would not be alive, pt exact words were, "What if that was my intention" I then proceeded to ask the direct question, "was your intention to kill yourself by injecting heroin in the bathroom?" Pts responds "yes" Pt placed on 02-28 On further evaluation, myself, Dr. Stuart and nurse reassess pt, once again ask her a direct question on whether or not she attempted to commit suicide, pt states "I do not feel comfortable discussing this" and will not answer the question. Pt states she would like to discuss this further with a Psychiatrist. Drug machine shop specialist assess pt and states if pt medically stable and if Psych clears her, she will be accepted for Detox. Pt agrees to go to detox after discussion with specialist Psych consulted, state pt is not suicidal and is cleared. Dr. Dorantes from inpatient team who cared for pt on the floor states that pt is medically safe for DC with COPD medications Pt DC to Detox but when receiving belongings back becomes very angry that heroin was taken from her. Pt is Psych cleared and medically cleared, pt decides to leave hospital and not proceed to detox. *DC/Admit/Observation/Transfer Diagnosis at time of Disposition: Overdose Qualifiers: Encounter type: initial encounter - Discharge Dispostion Disposition: HOME Condition at time of disposition: Stable Decision to Admit order: No - Prescriptions Prescriptions: Azithromycin [Zithromax 250mg Tablets -] 250 mg PO UTDICT #6 tab predniSONE [Deltasone -] 60 mg PO DAILY #12 tablet - Referrals Referrals: Ingrid Alvarez [Primary Care Provider] - - Patient Instructions Printed Discharge Instructions: DI for Drug Overdose in Adults Additional Instructions: You are being discharged to Detox from the ER. Dr. Mason will be your accepting Physician who is going to lead you through detox. Return to the ER for any new or concerning symptoms. Take the medications sent to your pharmacy as prescribed. Thank you - Post Discharge Activity
--- NOTE | 2018-05-04 15:36 | CON.PSY ---
Psychiatry Consult Chief Complaint: Patient with an history bof Heroin abuse came to ER with COPD. She apparantly injected heroin and said she was suicidal. Patient ofcourse denies that and said no body was helping her. p[atient is aeake alert and ambulating. She denies luke suicidal ideas or plans at this time. Symptoms: reports: Conduct Problems, Oppositionalism - Previous Psychiatric Treatment Outpatient: None Inpatient: None - Previous Substance Abuse Treatment Outpatient: None Inpatient: None - Reason for Previous Treatment Reason for Previous Treatment: Heroin or Other Narcotics - Allergies Allergies: Allergies Allergy/AdvReac Type Severity Reaction Status Date / Time egg Allergy Severe Hives Verified 05/04/18 10:53 Fish Containing Products Allergy Severe Hives Verified 05/04/18 10:53 peanut Allergy Severe Difficulty Verified 05/04/18 10:53 Breathing NKDA Allergy Uncoded 05/04/18 10:53 - Current Living Status Usual Living Arrangement: Alone - Current Mental Status Evaluation Appearance: Well Groomed Attitude: Cooperative - Affect Affect: Constrictive Appropriateness: Appropriate to Content - Mood Mood: Irritable - Speech/Language Expressive: Coherent - Psychomotor Activity Psychomotor Activity: Normal - Thought Process Thought Process: Intact - Thought Content Hallucinations: Absent Delusions: Absent - Self Perception Self Perception: No Impairment - Cognition Attention: Alert Orientation: Time Memory, Short Term: 2/3 Memory, Remote with Promptin/3 - Concentration Serial Sevens Intact: No Simple Calculations Intact: Yes - Abstraction Proverb Interpretation: [place] Judgement: Minimally Impaired - Insight Insight: Intact - Impulse Control Impulse Control: Minimally Impaired - Suicidal Ideation Suicidal Ideation: No - Homicidal Ideation Homicidal Ideation: No Assessment/Plan 1) Patient is not SUICIDal at this time. 2) Cleared for Psychiatry.
[2018-05-04 16:16] VITALS: BP 126/78; PULSE 89; TEMP 98.2
--- NOTE | 2018-05-04 17:15 | PDOC ---
Documentation entered by Deanne Mcconnell SCRIBE, acting as scribe for Glenna Stuart MD. Attending Attestation - Resident Resident Name: Arnav Zhu - ED Attending Attestation I have performed the following: I have examined & evaluated the patient, The case was reviewed & discussed with the resident, I agree w/resident's findings & plan, Exceptions are as noted - HPI HPI: 05/04/18 13:24 The patient is a 53 year old female, with a significant past medical history of 10 years tobacco smoker, COPD, alcohol/heroin abuse, who returns to the emergency department after eloping from the hospital during COPD treatment and was found unresponsive on the bathroom floor after being asked to provide a new urine sample. As per nursing staff, the patient was found unresponsive with a needle in her arm. The patient was saturating in the 70s, given Narcan and O2 saturation improved to 100. Allergies: NKDA - Physicial Exam PE: 05/04/18 13:14 GENERAL: The patient is in no acute distress, awake and alert. ENT: Ears normal, nares patent, oropharynx clear without exudates. Moist mucous membranes. NECK: Normal range of motion, supple LUNGS: Breath sounds equal, clear to auscultation bilaterally. No wheezes HEART:Regular rate and rhythm, normal S1 and S2 without murmur, rub or gallop. ABDOMEN: Soft, nontender, normoactive bowel sounds. NEUROLOGICAL: Cranial nerves II through XII grossly intact. Normal speech. No focal neurological deficits. SKIN: Warm, Dry, normal turgor, no rashes or lesions noted. - Medical Decision Making 05/04/18 16:34 53 yo F s/p previous admission for COPD exacerbation Pt absconded from the floors, reporting that she was about to withdraw and needed to get Heroin Pt returned to the ER to be re admitted In the bathroom, she injected Heroin and was found slumped on the floor, unresponsive, hypoxic Given Narcan with improvement in her mental status and vital signs In the ER, she reported to Dr Zhu and Nurse Golderif that she did this to harm herself Pt told me that she wanted to speak with the psychiatrist and did not deny self injurious thoughts Psych consulted - deemed patient not suicidal Substance abuse consulted - offered detox which patient accepted Pt seen by Dr Dorantes in the ER - pt medically cleared, will continue treatment for COPD exacerbation Pt will be discharged from the ER She can go to detox from the ER Pt is now stating that she does not want to go to detox Pt cleared medically and by psych She can be discharged to home Glenna Stuart MD: This documentation has been prepared by the Jayesh cabrera Amanda, SCRIBE, under my direction and personally reviewed by me in its entirety. I confirm that the documentation accurately reflects all work, treatment, procedures, and medical decision making performed by me.
== END 2018-05-04 17:29 | disposition home or self-care (01) ==
LOC: JER 10:51
PROC: 3E033GC Introduction of Other Therapeutic Substance into Peripheral Vein, Percutaneous Approach (ICD-10-PCS; principal; 2018-05-04)
DX: T40.1X1A Poisoning by heroin, accidental (unintentional), initial encounter (principal); Y92.231 Patient bathroom in hospital as the place of occurrence of the external cause; F11.20 Opioid dependence, uncomplicated; F10.20 Alcohol dependence, uncomplicated; F17.210 Nicotine dependence, cigarettes, uncomplicated; F16.10 Hallucinogen abuse, uncomplicated
CPT/HCPCS: 80307; 99282-25

== ENCOUNTER 2018-05-04 18:33 | Inpatient (IN) | payer OTHER ==
[2018-05-04 19:22] VITALS: BMI 23.1
--- NOTE | 2018-05-04 19:50 | HP ---
COWS - Scale Resting Pulse: 1= [place] 81-100 Sweatin= Chills/Flushing Restless Observation: 1= Difficult to Sit Still Pupil Size: 0= Normal to Room Light Bone or Joint Aches: 4=Acute Joint/Muscle Pain Runny Nose/ Eye Tearin= Nasal Congestion GI Upset > 30mins: 2= Nausea/Diarrhea Tremor Observation: 0= None Yawning Observation: 0= None Anxiety or Irritability: 2=Irritable/Anxious Goose Flesh Skin: 0=Smooth Skin COWS Score: 12 CIWA Score Nausea/Vomitin Muscle Tremors: 2 Anxiety: 4-Mod. Anxious/Guarded Agitation: 3 Paroxysmal Sweats: 1-Minimal Palms Moist Orientation: 0-Oriented Tacttile Disturbances: 0-None Auditory Disturbances: 0-None Visual Disturbances: 0-None Headache: 0-None Present CIWA-Ar Total Score: 12 - Admission Criteria OASAS Guidelines: Admission for Medically Managed Detox: Requires at least one of the followin. CIWA greater than 12 2. Seizures within the past 24 hours 3. Delirium tremens within the past 24 hours 4. Hallucinations within the past 24 hours 5. Acute intervention needed for co occurring medical disorder 6. Acute intervention needed for co occurring psychiatric disorder 7. Severe withdrawal that cannot be handled at a lower level of care (continued vomiting, continued diarrhea, abnormal vital signs) requiring intravenous medication and/or fluids 8. Admission ROS [facility] Allergies/Adverse Reactions: Allergies Allergy/AdvReac Type Severity Reaction Status Date / Time egg Allergy Severe Hives Verified 05/04/18 10:53 Fish Containing Products Allergy Severe Hives Verified 05/04/18 10:53 peanut Allergy Severe Difficulty Verified 05/04/18 10:53 Breathing NKDA Allergy Uncoded 05/04/18 10:53 History of Present Illness: pt here requesting detox from opiate use, reports 10 bags / day via inhalation x 10 yrs , latest use today .s/p ed admission for OD , given Narcan in ER . latest IVDU use was 5 years ago , tried MMTP , tried Suboxone unsuccessfully . ETOh use : 6-pk /day since age 23 , reports nausea , tremors , fatigue, reports drinking from early a.m. , + blackouts , w/d seizures , + falls while intoxicated denies frx / injuries , most recent seizure 2017 .Latest use yesterday . PMHx : COPD PShx : denies PSycxh : denies Exam Limitations: No Limitations - Ebola screening Have you traveled outside of the country in the last 21 days: No (N) Have you had contact with anyone from an Ebola affected area: No Have you been sick,other than usual withdrawal symptoms: No Do you have a fever: No - Review of Systems Constitutional: See HPI EENT: reports: See HPI Respiratory: reports: See HPI, Other (copd on meds from hospital) Cardiac: reports: No Symptoms Reported GI: reports: See HPI : reports: No Symptoms Reported Musculoskeletal: reports: No Symptoms Reported Integumentary: reports: No Symptoms Reported Neuro: reports: See HPI Endocrine: reports: No Symptoms Reported Psychiatric: reports: Orientated x3, Anxious (denies SI / HI) Patient History - Patient Medical History Hx Anemia: Yes (MVI) Hx Asthma: No Hx Chronic Obstructive Pulmonary Disease (COPD): Yes Hx Cancer: No Hx Cardiac Disorders: No Hx Congestive Heart Failure: No Hx Hypertension: No Hx Hypercholesterolemia: No Hx Pacemaker: No HX Cerebrovascular Accident: No Hx Seizures: No Hx Dementia: No Hx Diabetes: No Hx Gastrointestinal Disorders: No Hx Liver Disease: No Hx Genitourinary Disorders: No Hx Sexually Transmitted Disorders: No Hx Renal Disease (ESRD): No Hx Thyroid Disease: No Hx Human Immunodeficiency Virus (HIV): No (NEGATIVE HX. Last tested as per patient 2013, declines testing) Hx Hepatitis C: No Hx Depression: No Hx Suicide Attempt: No Hx Bipolar Disorder: No Hx Schizophrenia: No - Patient Surgical History Past Surgical History: No Hx Neurologic Surgery: No Hx Cataract Extraction: No Hx Cardiac Surgery: No Hx Lung Surgery: No Hx Breast Surgery: No Hx Breast Biopsy: No Hx Abdominal Surgery: No Hx Appendectomy: No Hx Cholecystectomy: No Hx Genitourinary Surgery: No Hx Section: No Hx Orthopedic Surgery: No Hx Hysterectomy: No Anesthesia Reaction: No - PPD History Date: 01/21/17 Results: 0 mm - Smoking Cessation Smoking history: Current every day smoker Have you smoked in the past 12 months: Yes Aproximately how many cigarettes per day: 20 Hx Chewing Tobacco Use: No Initiated information on smoking cessation: No - Substances Abused Alcohol Route: Oral Frequency: Daily Amount used: liquor- 1, beer- 3(25oz) Age of first use: 23 Date of Last Use: 05/04/18 Heroin Route: Injection Frequency: Daily Amount used: 10 bags Age of first use: 23 Date of Last Use: 05/03/18 Family Disease History - Family Disease History Family History: Denies Family Disease History: Other: Father (A & W ), Mother (A & W), Son (A & W ), Daughter (A & W ) Admission Physical Exam [facility] - Vital Signs Vital Signs: Vital Signs - 24 hr 05/04/18 19:18 Temperature 97.8 F Pulse Rate 100 H Respiratory 18 Rate Blood Pressure 140/87 - Physical General Appearance: Yes: Mild Distress HEENTM: Yes: EOMI, Hearing grossly Normal, Normocephalic, Normal Voice Respiratory: Yes: Chest Non-Tender, Lungs Clear, Normal Breath Sounds Neck: Yes: No masses,lesions,Nodules, Trachea in good position Cardiology: Yes: Regular Rhythm, Regular Rate, S1, S2, Tachycardia Abdominal: Yes: Normal Bowel Sounds Genitourinary: Yes: Within Normal Limits Back: Yes: Normal Inspection Musculoskeletal: Yes: full range of Motion, Gait Steady Extremities: Yes: Normal Capillary Refill, Non-Tender Neurological: Yes: Motor Strength 5/5, Normal Mood/Affect Integumentary: Yes: Normal Color, Track Potter - Diagnostic (1) COPD with acute exacerbation Current Visit: Yes Status: Acute (2) Alcohol dependence with uncomplicated withdrawal Current Visit: Yes Status: Acute (3) Nicotine dependence Current Visit: Yes Status: Chronic Qualifiers: Nicotine product type: cigarettes Substance use status: uncomplicated Qualified Code(s): F17.210 - Nicotine dependence, cigarettes, uncomplicated (4) Opioid dependence with withdrawal Current Visit: Yes Status: Acute S Breath Alcohol Content Breath Alcohol Content: 0 Urine Pregancy Test - Result Urine Test Results: Negative - NO Line Present Urine Drug Screen - Results Drug Screen Negative: No Urine Drug Screen Results: OPI-Opiates, BZO-Benzodiazepines, FEN-Fentanyl Inpatient Rehab Admission - Rehab Decision to Admit Inpatient rehab admission?: No
[2018-05-04] MEDS ORDERED: ACETAMINOPHEN 325 MG TABLET (FP) PO PRN ×2 (20:12)
[2018-05-04] MEDS ORDERED: NICOTINE POLACRILEX 2 MG GUM BUC PRN (20:12)
[2018-05-04] MEDS ORDERED: MELATONIN 5 MG TABLETS PO PRN (20:12)
[2018-05-04] MEDS ORDERED: MAG HYDROX/AL HYDROX/SIMETH 30 ML UNIT-DOSE CUP PO PRN (20:12)
[2018-05-04] MEDS ORDERED: BISMUTH SUBSALICYLATE 524 MG/30 ML UD PO PRN (20:12)
[2018-05-04] MEDS ORDERED: MAGNESIUM HYDROX 2400MG/30ML ORAL SUSPENSION 30 ML CUP PO PRN (20:12)
[2018-05-04] MEDS ORDERED: chlordiazePOXIDE HCL 10 MG CAPSULE PO PRN (20:12)
[2018-05-04] MEDS ORDERED: METHOCARBAMOL 500 MG TABLET PO PRN (20:12)
[2018-05-04] MEDS ORDERED: IBUPROFEN 400 MG TABLET (FP) PO PRN (20:12)
[2018-05-04] MEDS ORDERED: MENTHOL/PHENOL 1 EACH UD MM PRN (20:12)
[2018-05-04] MEDS ORDERED: MAGNESIUM CITRATE 300 ML BOTTLE PO PRN (20:12)
[2018-05-04] MEDS ORDERED: AZITHROMYCIN 250 MG TABLET PO SCH (20:30)
[2018-05-04] MEDS ORDERED: AZITHROMYCIN 250 MG TABLET PO ONE (21:30)
[2018-05-04] MEDS: chlordiazePOXIDE HCL 25 MG CAPSULE PO SCH (22:34)
[2018-05-04] MEDS: THIAMINE HCL 100 MG TABLET (FP) PO SCH (22:34)
[2018-05-04] MEDS ORDERED: METHADONE HCL 10 MG TABLET (FOR DETOX USE ONLY) PO ONE (23:00)
[2018-05-05] MEDS: chlordiazePOXIDE HCL 25 MG CAPSULE PO SCH ×2 (06:27→12:32)
[2018-05-05] MEDS ORDERED: METHADONE HCL 5 MG TABLET (FOR DETOX USE ONLY) PO ONE (10:00)
[2018-05-05] MEDS: PRENATAL VITAMINS W/ FOLIC ACID TABLET (FP) PO SCH (10:23)
[2018-05-05] MEDS: predniSONE 20 MG TABLET (UD) PO SCH (10:23)
[2018-05-05] MEDS: AZITHROMYCIN 250 MG TABLET PO SCH (10:23)
[2018-05-05] MEDS: ALBUTEROL SO4 8 GM HFA INHALER IH PRN (12:32)
[2018-05-05] MEDS: chlordiazePOXIDE HCL 25 MG CAPSULE PO PRN (15:48)
--- NOTE | 2018-05-05 16:09 | CONSULT ---
[facility] Psychiatric Consult - Data Date of interview: 05/05/18 Admission source: [facility] Identifying data: Readmission to [facility] for this 53 y/o AA female self- referred for detoxification (heroin, alcohol). Ms Phillips has returned from the [facility] where she was sent for medical management of COPD exacerbation. While in ED, the patient eloped, returned only to be found moments later in the bathroom, unconscious with hypodermic needle inserted in one arm. Treated successfully with naloxone. Demographics ar consistent with a 53 y/o AA female, , a mother of two, homeless and currently employed. Substance Abuse History: Discussed with patient in this session. Confirms IV use of heroin (10-15 bags daily) with onset around age 23 + consumption of 1-2 X 6 packs of beer. See [facility] report for additional details : Smoking history: Current every day smoker. Have you smoked in the past 12 months: Yes. Aproximately how many cigarettes per day: 20. Hx Chewing Tobacco Use: No. Initiated information on smoking cessation: No. - Substances Abused. Alcohol. Route: Oral. Frequency: Daily. Amount used: liquor- 1, beer- 3(25oz) . Age of first use: 23. Date of Last Use: 05/04/18. Heroin. Route: Injection. Frequency: Daily. Amount used: 10 bags. Age of first use: 23. Date of Last Use: 05/03/18 Medical History: COPD and bronchial asthma. Psychiatric History: Patient denies. Physical/Sexual Abuse/Trauma History: Patient denies. Additional Comment: Urine Drug Screen Results: OPI-Opiates, BZO-Benzodiazepines , FEN-Fentanyl. Noted. Mental Status Exam - Mental Status Exam Alert and Oriented to: Time, Place, Person Cognitive Function: Good Patient Appearance: Disheveled Mood: Irritable Affect: Labile Patient Behavior: Inappropriate (provocatively attired), Talkative ( argumentative), Cooperative (marginally cooperative) Speech Pattern: Clear Voice Loudness: Normal, Mildly Loud (at times) Thought Process: Goal Oriented Thought Disorder: Not Present Hallucinations: Denies Suicidal Ideation: Denies Homicidal Ideation: Denies Insight/Judgement: Poor Sleep: Poorly, Difficulty falling asleep Appetite: Good Gait/Station: Normal Psychiatric Findings - Problem List ([place] 1, 2,3) (1) Alcohol dependence with uncomplicated withdrawal Current Visit: Yes Status: Acute (2) Opioid dependence with withdrawal Current Visit: Yes Status: Acute (3) Nicotine dependence Current Visit: Yes Status: Chronic Qualifiers: Nicotine product type: cigarettes Substance use status: uncomplicated Qualified Code(s): F17.210 - Nicotine dependence, cigarettes, uncomplicated (4) Substance induced mood disorder Current Visit: Yes Status: Suspected (5) Personality disorder, unspecified Current Visit: Yes Status: Suspected (6) Insomnia Current Visit: Yes Status: Chronic - Initial Treatment Plan Initial Treatment Plan: Psychoeducation. Detoxification. Sleep hygiene. Insomnia is addressed with melatonin at bedtime. Relapse prevention : discussed (patient is not receptive to teaching). AA/NA meetings. Motivational sessions for the duration of detoxification. Seroquel 25 mg po hs (patient's request). Side effects/benefits discussed. made aware of risk of abnormal involuntary movements and metabolic syndrome. Consent (verbal) granted to MD. Sanchez.
[2018-05-05] MEDS: THIAMINE HCL 100 MG TABLET (FP) PO SCH (23:02)
[2018-05-05] MEDS: chlordiazePOXIDE 5 MG CAPSULE PO SCH (23:02)
--- NOTE | 2018-05-06 00:29 | PN ---
[facility] CIWA - CIWA Score Nausea/Vomitin-No Nausea/No Vomiting Muscle Tremors: None Anxiety: 4-Mod. Anxious/Guarded Agitation: 3 Paroxysmal Sweats: No Perspiration Orientation: 0-Oriented Tacttile Disturbances: 3-Moderate Itch/Numb/Burn Auditory Disturbances: 1-Very Mild Visual Disturbances: 2-Mild Sensitivity Headache: 0-None Present CIWA-Ar Total Score: 13 S COWS - Scale Resting Pulse: 1= [place] 81-100 Sweatin= No chills or Flushing Restless Observation: 1= Difficult to Sit Still Pupil Size: 0= Normal to Room Light Bone or Joint Aches: 2= Severe Diffuse Aches Runny Nose/ Eye Tearin= None GI Upset > 30mins: 0= None Tremor Observation of Outstretched Hands: 0= None Yawning Observation: 1= 1-2x During Session Anxiety or Irritability: 2=Irritable/Anxious Goose Flesh Skin: 3=Piloerection COWS Score: 10 S Progress Note (SOAP) Subjective: Anxious, Interrupted Sleep, Body Aches. Objective: PATIENT A & O X 3, OBSERVED AMBULATING ON UNIT. IN NO ACUTE DISTRESS. Vital Signs Temperature 98.1 F 05/05/18 22:00 Pulse Rate 67 05/05/18 22:00 Respiratory Rate 16 05/05/18 22:00 Blood Pressure 141/86 05/05/18 22:00 O2 Sat by Pulse Oximetry (%) ADMISSION LAB RESULTS NOTED. RPR RESULT PENDING. 05/06/18 00:27 Assessment: 05/06/18 00:29 WITHDRAWAL SYMPTOMS. Plan: CONTINUE DETOX.
[2018-05-06] MEDS: chlordiazePOXIDE HCL 25 MG CAPSULE PO PRN ×3 (02:39→14:24)
[2018-05-06] MEDS ORDERED: hydrOXYzine PAMOATE 50 MG CAPSULE (FP) PO PRN (02:49)
[2018-05-06] MEDS: hydrOXYzine PAMOATE 50 MG CAPSULE (FP) PO PRN ×4 (03:06→22:14)
[2018-05-06] MEDS: chlordiazePOXIDE 5 MG CAPSULE PO SCH ×2 (06:08→12:49)
[2018-05-06] MEDS: ALBUTEROL SO4 8 GM HFA INHALER IH PRN (08:24)
[2018-05-06] MEDS: predniSONE 20 MG TABLET (UD) PO SCH (09:17)
[2018-05-06] MEDS: PRENATAL VITAMINS W/ FOLIC ACID TABLET (FP) PO SCH (09:17)
[2018-05-06] MEDS: AZITHROMYCIN 250 MG TABLET PO SCH (09:17)
[2018-05-06] MEDS ORDERED: METHADONE HCL 10 MG TABLET (FOR DETOX USE ONLY) PO ONE (10:00)
[2018-05-06] MEDS: ALBUTEROL SO4 2.5/IPRATROPIUM 0.5 INH SOL 3 ML VIAL.NEB. NEB PRN ×2 (12:12→19:36)
--- NOTE | 2018-05-06 15:26 | PN ---
S CIWA - CIWA Score Nausea/Vomitin-No Nausea/No Vomiting Muscle Tremors: 2 Anxiety: 4-Mod. Anxious/Guarded Agitation: 3 Paroxysmal Sweats: No Perspiration Orientation: 0-Oriented Tacttile Disturbances: 2-Mild Itch/Numbness/Burn Auditory Disturbances: 0-None Visual Disturbances: 0-None Headache: 0-None Present CIWA-Ar Total Score: 11 S COWS - Scale Resting Pulse: 1= [place] 81-100 Sweatin= No chills or Flushing Restless Observation: 1= Difficult to Sit Still Pupil Size: 0= Normal to Room Light Bone or Joint Aches: 2= Severe Diffuse Aches Runny Nose/ Eye Tearin= None GI Upset > 30mins: 0= None Tremor Observation of Outstretched Hands: 0= None Yawning Observation: 1= 1-2x During Session Anxiety or Irritability: 4=Extreme Anxiety Goose Flesh Skin: 0=Smooth Skin COWS Score: 9 S Progress Note (SOAP) Subjective: Anxious, Body Aches, Interrupted Sleep. Objective: PATIENT A & O X 3, OBSERVED AMBULATING ON UNIT. IN NO ACUTE DISTRESS. 05/06/18 15:29 Vital Signs Temperature 98.5 F 05/06/18 13:54 Pulse Rate 88 05/06/18 13:54 Respiratory Rate 18 05/06/18 13:54 Blood Pressure 140/83 05/06/18 13:54 O2 Sat by Pulse Oximetry (%) Laboratory Tests 05/05/18 06:00 RPR Titer Nonreactive ADMISSION LAB RESULTS NOTED. Assessment: 05/06/18 15:29 WITHDRAWAL SYMPTOMS. Plan: CONTINUE DETOX.
[2018-05-06] MEDS ORDERED: chlordiazePOXIDE HCL 10 MG CAPSULE PO PRN (21:00)
[2018-05-06] MEDS ORDERED: QUEtiapine FUMARATE 50 MG TABLET PO SCH (22:00)
[2018-05-06] MEDS: chlordiazePOXIDE HCL 10 MG CAPSULE PO SCH (22:15)
[2018-05-06] MEDS: THIAMINE HCL 100 MG TABLET (FP) PO SCH (22:45)
[2018-05-07] MEDS ORDERED: METHADONE HCL 5 MG TABLET (FOR DETOX USE ONLY) PO ONE (06:00)
[2018-05-07] MEDS: chlordiazePOXIDE HCL 10 MG CAPSULE PO SCH (06:13)
[2018-05-07 06:29] VITALS: BP 150/97; PULSE 60; TEMP 97.1
--- NOTE | 2018-05-07 11:12 | DS ---
[facility] Detox Discharge Summary Admission Date: 05/04/18 Discharge Date: 05/07/18 - History Present History: Alcohol Dependence, Opioid Dependence Additional Comments: 53 years old female admitted on 05/04/18 for alcohol and opiate withdrawal stabilization completed detox regimen aftercare [facility] - Physical Exam Results Vital Signs: Vital Signs Temperature 97.1 F L 05/07/18 06:29 Pulse Rate 60 05/07/18 06:29 Respiratory Rate 18 05/07/18 06:29 Blood Pressure 150/97 05/07/18 06:29 O2 Sat by Pulse Oximetry (%) Pertinent Admission Physical Exam Findings: alcohol and opiate withdrawal sx Vital Signs Temperature 97.1 F L 05/07/18 06:29 Pulse Rate 60 05/07/18 06:29 Respiratory Rate 18 05/07/18 06:29 Blood Pressure 150/97 05/07/18 06:29 O2 Sat by Pulse Oximetry (%) Laboratory Last Values RPR Titer Nonreactive (NONREACTIVE) 05/05/18 06:00 lab see [address] [place] [address] on 05/03/18 - Treatment Hospital Course: Detox Protocol Followed, Detoxed Safely, Responded well, Discharged Condition Good, Rehab Referral Accepted Patient has Accepted a Rehab Referral to: [facility] - Medication Discharge Medications: Ambulatory Orders Albuterol 2.5/Ipratropium 0.5 [Duoneb -] 1 neb IH QID 05/04/18 Azithromycin [Zithromax 250mg Tablets -] 250 mg PO UTDICT #6 tab 05/04/18 predniSONE [Deltasone -] 60 mg PO DAILY #12 tablet 05/04/18 Naloxone HCl [Narcan] 4 mg NS ASDIR PRN 05/07/18 - Diagnosis (1) Alcohol dependence with uncomplicated withdrawal Status: Acute (2) Opioid dependence with withdrawal Status: Acute (3) Nicotine dependence Status: Acute Qualifiers: Nicotine product type: cigarettes Substance use status: in withdrawal Qualified Code(s): F17.213 - Nicotine dependence, cigarettes, with withdrawal (4) Substance induced mood disorder Status: Suspected - AMA Did Patient Leave Against Medical Advice: No
== END 2018-05-07 09:30 | disposition home or self-care (01) | DRG 773 ==
LOC: YASAS 18:33 → Y3N 20:28
PROVIDERS: ADMIT Surgery; ATTEND Surgery
PROC: HZ2ZZZZ Detoxification Services for Substance Abuse Treatment (ICD-10-PCS; principal; 2018-05-04)
DX: F11.23 Opioid dependence with withdrawal (principal); F10.230 Alcohol dependence with withdrawal, uncomplicated; F17.213 Nicotine dependence, cigarettes, with withdrawal; F19.24 Other psychoactive substance dependence with psychoactive substance-induced mood disorder; F60.9 Personality disorder, unspecified; J44.1 Chronic obstructive pulmonary disease with (acute) exacerbation; G47.00 Insomnia, unspecified; D64.9 Anemia, unspecified; Z91.010 Allergy to peanuts; Z91.012 Allergy to eggs; Z91.013 Allergy to seafood
CPT/HCPCS: 36415; 80307; 86593; 94640; 99282-25